=== PATIENT | female | born 1995 | race Caucasian/White ===

== ENCOUNTER → 2018-03-26 09:10 | Outpatient (REF) | payer SELFPAY ==
--- NOTE | 2018-03-26 08:30 | PAPFT_PTH ---
PATIENT: Amna Squires LOC: [facility] U#:[id number] AGE/SX: 29/F ROOM: RE03/26/[address]: Ramona Valentine NP : 1995 BED: DIS: SPEC #: [id number] RECD: 03/26/18 12:44 STATUS: MANI NICHOLS #: [id number] AN: 03/26/18 08:[address]: Ramona Valentine NP DEPT: [facility] Cytology RECD BY: Chante Solano ENTERED: 03/26/18 12:45 SP TYPE: PAPFT OTHR DR: Malika Dominguez, IT CONSULTING MANAGER Tissues: 1 - CX/ENDOCX FOR PAP SMEARS Procedures: PAP THIN PREP/UVM Screening Comments: [id number] (CHLAMYDIA GC)
[2018-03-27 14:07] LABS: Chlamydia Result Negative; GC Result Negative; Specimen Description SEE COMMENTS
== END ==
LOC: LBN 09:10
PROVIDERS: PCP Nurse Practitioner Family; Visit Provider Nurse Practitioner Women's Health
DX: Z11.3 Encounter for screening for infections with a predominantly sexual mode of transmission (principal); Z12.4 Encounter for screening for malignant neoplasm of cervix
CPT/HCPCS: 87491; 87591; 88142

== ENCOUNTER 2018-05-12 08:56 | Outpatient (CLI) | payer SELFPAY ==
--- NOTE | 2018-05-12 09:05 | DI.US_ITS ---
SYMPTOMS/DIAGNOSIS: LEFT LOWER QUADRANT ABDOMINAL PAIN AND EPIGASTRIC PAIN ABDOMINAL AND PELVIC ULTRASOUND: Routine examination. ABDOMINAL ULTRASOUND: The visualized liver parenchyma is normal in appearance. There is no evidence of cholelithiasis. The common bile duct is of normal diameter. The pancreas and spleen appear intact. No renal abnormality is seen. The abdominal aorta is of normal diameter. Normal appearance of IVC. IMPRESSION: Normal abdominal ultrasound. PELVIC ULTRASOUND: Transabdominal and transvaginal examination. The uterus measures 7.6 cm long x 3.5 cm AP x 5.0 cm transverse. The endometrial stripe is within normal limits at 0.5 cm. There is an intrauterine device seen within the endometrial canal. The ovaries are normal in size and appearance with normal blood flow. No evidence of a suspicious ovarian mass or torsion is seen. No free pelvic fluid is seen in the pelvis. IMPRESSION: Intrauterine device seen within the endometrial canal. Otherwise negative examination.
[2018-05-14 13:11] LABS: IgA 154 mg/dL (85-499); Interpretation SEE COMMENTS; Tissue Transglutaminase IgA <1.2 U/mL (<4.0)
== END 2018-05-12 09:16 ==
PROVIDERS: PCP Nurse Practitioner Family; Visit Provider Nurse Practitioner Family
DX: R10.31 Right lower quadrant pain (principal); R10.32 Left lower quadrant pain; Z97.5 Presence of (intrauterine) contraceptive device
CPT/HCPCS: 36415; 82784; 83516; 76700; 76830; 76856

== ENCOUNTER 2021-06-15 12:24 | Outpatient (REF) | payer SELFPAY ==
--- NOTE | 2021-06-15 10:30 | PAPFT_PTH ---
PATIENT: Amna Squires LOC: [facility] U#:[id number] AGE/SX: 25/F ROOM: RE06/15/[address]: JEROME Helay : 1995 BED: DIS: 06/15/2021 SPEC #: [id number] RECD: 06/15/21 13:02 STATUS: MANI NICHOLS #: [id number] AN: 06/15/21 10:[address]: Carito Cueva DEPT: [facility] Cytology RECD BY: Chante Solano ENTERED: 06/15/21 13:02 SP TYPE: PAPFT MALAIKA DR: JEROME May Tissues: 1 - CX/ENDOCX FOR PAP SMEARS Procedures: PAP THIN PREP/UVM Screening Comments: [id number]
== END 2021-06-15 12:25 | disposition home or self-care (01) ==
LOC: LBN 12:24
PROVIDERS: PCP Nurse Practitioner Family; Visit Provider Nurse Practitioner Family
DX: Z12.4 Encounter for screening for malignant neoplasm of cervix (principal)
CPT/HCPCS: 88142

== ENCOUNTER 2022-06-15 10:40 | Emergency (ER) | payer SELFPAY ==
[2022-06-15 10:43] VITALS: BP 123/83; PULSE 80; RESP 20; TEMP 36.7; O2SAT 98
--- NOTE | 2022-06-15 12:07 | ED.GENADUL_ITS ---
Discharge Plan Disposition Patient Disposition: HOME Condition: Improving Discharge Details Clinical Impression: Anxiety Primary Care Provider: Malika Dominguez ED Provider: Jesica Morales Home Meds and New Rx's Prescriptions: Continued fexofenadine 60 mg tablet 60 mg PO BID buspirone 30 mg tablet 30 mg PO BID Qty: 180 4RF Rx Instructions: Take 1 tablet twice a day fluoxetine 10 mg capsule 10 mg PO DAILY Qty: 90 0RF Discharge Instructions Instructions: Anxiety (ED) Additional Instructions: Drink plenty of fluids and get plenty of rest. Continue your regular medications as directed. Follow-up with [facility] and your primary care doctor for reevaluation as directed. Return immediately to the emergency department if you develop any worsening or new concerning symptoms. Discharge Data Discharge Physician: Jesica Morales Medical Decision Making 26-year-old female with a history of anxiety and depression presents with feel ings of anxiety and hearing voices this morning. She currently denies any SI or HI. Vitals within normal limits. Patient appears mild to moderately anxious but nontoxic. PERRLA. Lungs clear bilaterally. No meningeal signs. As patient appears comfortable and nontoxic, do not see an indication for lab work or imaging. Discussed that as medications are adjusted, this can cause some increase in anxiety or depression symptoms. Discussed that we will consult mental health for evaluation and she is agreeable with this plan at this time. Patient evaluated by Kranthi with mental health and cleared for discharge to home. Safety plan contracted. She was given follow-up information. Usual and customary return precautions given prior to discharge. Medical Records Medical records reviewed: Yes I reviewed the patient's medical records. HPI General Mode of arrival: ambulatory . Date/Time Provider Initiated Documentation: 06/15/22 10:43 . Limitations to Documentation: no limitations . Information obtained by: patient . HPI Narrative: Patient is a 26-year-old female with a history of anxiety who presents to the ED with a complaint of feeling anxiety this morning. Patient states her primary care doctor is decreasing her buspirone and started fluoxetine 3 days ago. Patient states she is not sure if this is secondary to these medication changes. She states she is also seeing a counselor for her symptoms this week. She states she called her mom due to her feelings of anxiety and her mom was concerned stating that she told her she was hearing voices. Patient states she is hearing thoughts telling her she needs to clean the house or complete tasks but denies any voices other than her own or telling her to cause harm to herself or others. Mother states that patient asked her spouse to lock up the firearms at home and she became concerned about this. Patient states she did this preemptively as she was knowing she was starting a new antidepressant and wanted to make sure she was safe. She states she has a history of cutting as a child but denies any other self-harm or suicide attempt. Patient states she has been having difficulty sleeping but otherwise has been eating. She denies any fever, chest pain, difficulty breathing, vomiting or diarrhea. Patient states she overall feels much better at this time and denies any hallucinations, thoughts of self-harm or feelings of significant anxiety at this time. Related Data Home Medications Medication Instructions Recorded Confirmed fexofenadine 60 mg tablet 60 mg PO BID 05/12/21 06/15/22 buspirone 30 mg tablet 30 mg PO BID #180 tabs 08/21/21 06/15/22 fluoxetine 10 mg capsule 10 mg PO DAILY #90 caps 06/13/22 06/15/22 Previous Rx's Medication Instructions Recorded buspirone 30 mg tablet 30 mg PO BID #180 tabs 08/21/21 fluoxetine 10 mg capsule 10 mg PO DAILY #90 caps 06/13/22 Allergies Allergy/AdvReac Type Severity Reaction Status Date / Time codeine Allergy Verified 06/13/22 08:01 Lactose Intolerance AdvReac Unknown GI Upset Uncoded 06/13/22 08:01 General Stated Complaint: GenMedical TERI: 4 Review of Systems All systems reviewed & are unremarkable except as noted in HPI and below Constitutional Constitutional: Reports as per HPI, Denies chills and Denies fever(s) Eyes Eyes: Denies blurry vision ENT Ears, Nose, Mouth, and Throat: Denies dizziness, Denies sore throat and Denies throat swelling Cardiovascular Cardiovascular: Denies chest pain and Denies dyspnea Respiratory Respiratory: Denies cough and Denies dyspnea Gastrointestinal Gastrointestinal: Denies abdominal pain, Denies diarrhea and Denies vomiting Genitourinary Genitourinary: Denies hematuria and Denies dysuria Musculoskeletal Musculoskeletal: Denies back pain and Denies numbness Integumentary/Breasts Skin/Breast: Denies lesions and Denies rash Neurologic Neurologic: Denies dizziness, Denies localized weakness and Denies numbness Psychiatric Psychiatric: Reports anxiety Allergic/Immunologic Allergic/Immunologic: Denies throat swelling PFSH All Active Problems (Updated 06/15/22 @ 14:21 by Jesica Morales DO) Anxiety (Chronic) Plantar wart, right foot (Chronic) ADHD (attention deficit hyperactivity disorder) (Chronic) Major depressive disorder (Chronic) Generalized anxiety disorder (Chronic) Fibromyalgia (Chronic) Mild intermittent asthma (Chronic) Medical History (Updated 06/15/22 @ 14:21 by Jesica Morales DO) Anorexia IUD surveillance Surgical History S/P removal of ovarian cyst Right Family History Mother Depression Asthma Father Substance abuse Alcohol abuse Depression Mental disorder Brother No problems noted. Brother ADHD Depression Maternal Grandfather Asthma Heart disease Maternal Grandmother Crohn's disease Paternal Grandfather No problems noted. Paternal Grandmother No problems noted. Social History Smoking/Tobacco Use Status: Current every day Tobacco Type: e-cigarettes Tobacco: How many years used: 10 Smokeless tobacco user: dissolvable tobacco Quit status: considering quitting Second Hand Exposure: Yes Smoking risk assessment performed?: Yes Alcohol Intake: current Alcohol Intake frequency: holidays/special occasions only Alcohol type: wine Drug use: Daily Substance use type: marijuana Details: Pt state she was previously misusing adderall but no longer. 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 Pets and animals: No Sexually active: Yes Do you think of yourself as: straight/heterosexual Current gender identity: female What is your relationship status?: How often do you talk on the phone with friends or family?: never How often do you get together with friends or relatives?: twice per week Do you belong to any clubs or organized social groups?: no Panel score (0-1 are the most socially isolated patients): 1 What type of physical activity do you participate in: walking and weight lifting Duration: < 15 minutes/day Frequency: daily Gwen/Hindu: None Special gwen needs: No Seatbelt use: always Helmet use: Yes Helmet use: always Drive intox or ride w/intox 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 Do you feel safe at home: No Do you feel safe in your relationship?: No Female Reproductive History Menstrual control method: copper IUCD History History 0 Para Hx # Term Pregnancies Multiple births Hx # Pregnancies Ectopic pregnancies AB induced Hx Number of Living Children AB spontaneous Exam Const General: cooperative, no acute distress and anxious Orientation: alert, awake and oriented x3 HENMT Head: normal to inspection Face and sinus: normal facial exam Eyes General: appearance normal, both eyes and all related structures Pupils: PERRL EOM: EOM intact bilaterally Neck Neck: normal visual inspection and No submandibular swelling Lymphatic: no lymphadenopathy noted Chest Chest: normal inspection of the chest and no tenderness Resp Effort & Inspection: normal respiratory effort and able to speak in complete sentences Auscultation: clear to auscultation bilaterally Cardio Rate: regular rate Rhythm: regular rhythm GI Inspection: normal to inspection Palpation: soft, not firm, not rigid and nontender Auscultation: hypoactive bowel sounds Back/Spine/Pelvis Thoracic/Lumbar Spine: thoracic and lumbar spine normal to inspection Pelvis: no pain with anterior-posterior compression Skin General skin exam: no rashes or lesions noted Neuro General: patient alert, patient awake and patient oriented x3 Cognition: normal cognition Speech: speech normal Motor: muscle tone normal throughout Sensory Exam: no sensory deficits noted Extrem General: normal to inspection, full ROM, capillary refill normal, no calf tenderness bilaterally and no edema Psych Appearance: grossly normal Mental Status: mental status grossly normal Speech and Movement: speech and movement normal Affect: normal affect Course Vital Signs Vital signs: Vital Signs Temperature 98.1 F 06/15/22 10:43 Pulse 80 06/15/22 10:43 Respiratory Rate 20 06/15/22 10:43 Blood Pressure 123/83 06/15/22 10:43 Pulse Oximetry 98 06/15/22 10:43 Temperature 98.1 F 06/15/22 10:43 Temperature Source Temporal Artery Scan 06/15/22 10:43 Pulse 80 06/15/22 10:43 Respiratory Rate 20 06/15/22 10:43 Respiratory Effort Non-Labored 06/15/22 10:47 Blood Pressure 123/83 06/15/22 10:43 Blood Pressure Position Sitting 06/15/22 10:43 Pulse Oximetry 98 06/15/22 10:43 Oxygen Delivery Method Room Air 06/15/22 10:43 Oxygen Flow Rate 0 06/15/22 10:43 Lab/Test Results Lab/Test Results: POC- Test(urine) Negative
[2022-06-15 14:37] VITALS: BP 130/87; PULSE 90; RESP 18; O2SAT 92
== END 2022-06-15 14:41 | disposition home or self-care (01) ==
PROVIDERS: Emergency Provider Physician Assistant; PCP Nurse Practitioner Family
DX: F41.9 Anxiety disorder, unspecified (principal); Z32.02 Encounter for pregnancy test, result negative
CPT/HCPCS: 81025; 99283; 99284

== ENCOUNTER 2022-06-16 07:34 | Emergency (ER) | payer SELFPAY ==
[2022-06-16 07:38] VITALS: BP 120/87; PULSE 72; RESP 17; TEMP 36.9; O2SAT 100
[2022-06-16 07:44] VITALS: RESP 18
--- NOTE | 2022-06-16 08:31 | W.ED.GENAD ---
Discharge Plan Disposition Patient Disposition: HOME Condition: Improving Discharge Details Clinical Impression: Vaginal odor, Anxiety Primary Care Provider: Malika Dominguez ED Provider: Jesica Morales Home Meds and New Rx's Prescriptions: Continued fexofenadine 60 mg tablet 60 mg PO BID buspirone 30 mg tablet 30 mg PO BID Qty: 180 4RF Rx Instructions: Take 1 tablet twice a day fluoxetine 10 mg capsule 10 mg PO DAILY Qty: 90 0RF Discharge Instructions Instructions: Bacterial Vaginosis (ED), Anxiety (ED) Additional Instructions: Your urine sample shows no evidence of infection. Your urine test today is negative. Your vaginal pathogen screen is pending. You will be notified of the results today. Your chlamydia and gonorrhea tests are pending and you will be notified if you are positive for infection. Drink plenty of fluids and get plenty of rest. Take the oral Ativan as needed and directed for feelings of anxiety. Call your primary care doctor and [facility] for follow-up this week. Follow[facility] with [facility] for your anxiety as scheduled. Return immediately to the emergency department if you develop any worsening or new concerning symptoms. Referrals: [facility] [place] [place] [Provider Group] Discharge Data Discharge Physician: Jesica Morales Medical Decision Making 26-year-old female with a history of anxiety, depression, ADHD, asthma, fibromyalgia presents for multiple complaints today. She was seen here yesterday for anxiety and given referral information for mental health. She states her main complaint for decided to come to the emergency department is vaginal odor. She states she tasted blood in her mouth on the way to the emergency department. Patient is profoundly anxious. Her vitals are within normal limits. She is tearful throughout evaluation. Normal ENT exam. Lungs clear. Abdomen soft and nontender. Urine test negative. Discussed with patient that her history and presentation does not appear consistent with meningitis, CVA, PE. Will obtain urinalysis and speculum exam with vaginal swabs and give a dose of ativan PO. Urinalysis negative for infection. Speculum exam no obvious odor or vaginal discharge. There was a small ulcer noted on the vaginal mucosa but there are no signs of cellulitis or drainage. No cervical motion tenderness or adnexal mass or tenderness. Patient would like to go home. Will call with vaginal Pap screen results. Advised to follow-up with [facility] and her primary care doctor for reevaluation. Given a couple tabs of Ativan p.o. to go. Usual and customary return precautions given prior to discharge. Medical Records Medical records reviewed: Yes I reviewed the patient's medical records. HPI General Mode of arrival: ambulatory. Date/Time Provider Initiated Documentation: 06/16/22 07:35. Limitations to Documentation: no limitations. Information obtained by: patient and family. HPI Narrative: Pt is a 26yo F w/ a h/o anxiety who presents to the ED w/ multiple complaints including headache, abdominal bloating, occasional vomiting, alternating constipation and diarrhea, taste of blood in mouth, vaginal odor, urinary frequency and vaginal spotting of blood. She states she had her IUD removed 1 year ago and normally does not have regular periods. She thinks her last period was 4-6 weeks ago. She is sexually active with her and does not always use protection. She states the odor is foul but she denies any vaginal lesions or green frothy or cheesy discharge. Triage note stated that pt had runny nose but pt denies this. Pt states she decided to come to the emergency department today due to vaginal odor and then noted that she tasted blood in her mouth on the way here. She states she often has headaches and hasn't been sleeping and eating well due to her anxiety and recently decreasing her bupropion a couple weeks ago and started fluoxetine a few days ago per her pcp for her anxiety. Pt was seen here yesterday for anxiety and seen by mental health and given referral information for follow up. She has denied SI/HI. Pt feels she has good support with her and family at home. She denies fever, neck pain, chest pain, difficulty breathing. Related Data Home Medications Medication Instructions Recorded Confirmed fexofenadine 60 mg tablet 60 mg PO BID 05/12/21 06/16/22 buspirone 30 mg tablet 30 mg PO BID #180 tabs 08/21/21 06/16/22 fluoxetine 10 mg capsule 10 mg PO DAILY #90 caps 06/13/22 06/16/22 Previous Rx's Medication Instructions Recorded buspirone 30 mg tablet 30 mg PO BID #180 tabs 08/21/21 fluoxetine 10 mg capsule 10 mg PO DAILY #90 caps 06/13/22 Allergies Allergy/AdvReac Type Severity Reaction Status Date / Time codeine Allergy Verified 06/16/22 07:44 Lactose Intolerance AdvReac Unknown GI Upset Uncoded 06/16/22 07:44 General Stated Complaint: GenMedical TERI: 3 Review of Systems All systems reviewed & are unremarkable except as noted in HPI and below Constitutional Constitutional: Reports as per HPI, Denies chills, Denies fever(s) and Reports headache(s) Eyes Eyes: Denies blurry vision ENT Ears, Nose, Mouth, and Throat: Denies dizziness, Reports headache(s), Denies sore throat and Denies throat swelling Cardiovascular Cardiovascular: Denies chest pain and Denies dyspnea Respiratory Respiratory: Denies cough and Denies dyspnea Gastrointestinal Gastrointestinal: Denies abdominal pain, Reports bloating, Reports constipation, Reports diarrhea and Denies vomiting Genitourinary Genitourinary: Denies hematuria, Denies dysuria, Reports vaginal odor and Reports other (urinary frequency) Musculoskeletal Musculoskeletal: Denies back pain and Denies numbness Integumentary/Breasts Skin/Breast: Denies lesions and Denies rash Neurologic Neurologic: Denies dizziness, Reports headache(s), Denies localized weakness and Denies numbness Allergic/Immunologic Allergic/Immunologic: Denies throat swelling PFSH All Active Problems (Updated 06/16/22 @ 09:20 by Jesica Morales DO) Vaginal odor (Acute) Anxiety (Chronic) Anxiety (Chronic) Plantar wart, right foot (Chronic) Medical History (Updated 06/16/22 @ 09:20 by Jesica Morales DO) ADHD (attention deficit hyperactivity disorder) Anorexia Fibromyalgia Generalized anxiety disorder Major depressive disorder Mild intermittent asthma Surgical History S/P removal of ovarian cyst Right Family History Mother Depression Asthma Father Substance abuse Alcohol abuse Depression Mental disorder Brother No problems noted. Brother ADHD Depression Maternal Grandfather Asthma Heart disease Maternal Grandmother Crohn's disease Paternal Grandfather No problems noted. Paternal Grandmother No problems noted. Social History Smoking/Tobacco Use Status: Current every day Tobacco Type: e-cigarettes Tobacco: How many years used: 10 Smokeless tobacco user: dissolvable tobacco Quit status: considering quitting Second Hand Exposure: Yes Smoking risk assessment performed?: Yes Alcohol Intake: current Alcohol Intake frequency: holidays/special occasions only Alcohol type: wine Drug use: Daily Substance use type: marijuana Details: Pt state she was previously misusing adderall but no longer. 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[employer] Pets and animals: No Sexually active: Yes Do you think of yourself as: straight/heterosexual Current gender identity: female What is your relationship status?: How often do you talk on the phone with friends or family?: never How often do you get together with friends or relatives?: twice per week Do you belong to any clubs or organized social groups?: no Panel score (0-1 are the most socially isolated patients): 1 What type of physical activity do you participate in: walking and weight lifting Duration: < 15 minutes/day Frequency: daily Gwen/Voodoo: None Special gwen needs: No Seatbelt use: always Helmet use: Yes Helmet use: always Drive intox 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 Do you feel safe at home: No Do you feel safe in your relationship?: No Female Reproductive History Menstrual control method: copper IUCD History History 0 Para Hx # Term Pregnancies Multiple births Hx # Pregnancies Ectopic pregnancies AB induced Hx Number of Living Children AB spontaneous Exam Const General: cooperative, healthy appearing and anxious (significantly anxious) Orientation: alert, awake and oriented x3 HENMT Head: normal to inspection Face and sinus: normal facial exam Eyes General: appearance normal, both eyes and all related structures Pupils: PERRL EOM: EOM intact bilaterally Neck Neck: normal visual inspection and No submandibular swelling Lymphatic: no lymphadenopathy noted Chest Chest: normal inspection of the chest and no tenderness Resp Effort & Inspection: normal respiratory effort and able to speak in complete sentences Auscultation: clear to auscultation bilaterally Cardio Rate: regular rate Rhythm: regular rhythm GI Inspection: normal to inspection Palpation: soft, not firm, not rigid and nontender Auscultation: hypoactive bowel sounds Skin General skin exam: no rashes or lesions noted Neuro General: patient alert, patient awake and patient oriented x3 Cognition: normal cognition Speech: speech normal Motor: muscle tone normal throughout Sensory Exam: no sensory deficits noted Extrem General: normal to inspection, full ROM, capillary refill normal, no calf tenderness bilaterally and no edema Psych Appearance: grossly normal Mental Status: mental status grossly normal Speech and Movement: speech and movement normal Affect: normal affect Course Vital Signs Vital signs: Vital Signs Temperature 98.4 F 06/16/22 07:38 Pulse 72 06/16/22 07:38 Respiratory Rate 17 06/16/22 07:38 Blood Pressure 120/87 06/16/22 07:38 Pulse Oximetry 100 06/16/22 07:38 Temperature 98.4 F 06/16/22 07:38 Temperature Source Tympanic 06/16/22 07:38 Pulse 72 06/16/22 07:38 Respiratory Rate 18 06/16/22 07:44 Respiratory Effort Non-Labored 06/16/22 07:44 Respiratory Depth Normal 06/16/22 07:44 Respiratory Pattern Normal 06/16/22 07:44 Blood Pressure 120/87 06/16/22 07:38 Blood Pressure Position Sitting 06/16/22 07:38 Pulse Oximetry 100 06/16/22 07:38 Oxygen Delivery Method Room Air 06/16/22 07:38 Oxygen Flow Rate 0 06/16/22 07:38 Pain Level 0 06/16/22 07:38
[2022-06-16] MEDS: LORazepam 1 MG TAB PO (08:34)
[2022-06-16 09:02] LABS: Bilirubin Negative (Negative); Blood Negative (Negative); Clarity Sl Cloudy (Clear); Glucose Negative (Negative); Ketones 40 mg/dL (Negative); Leukocyte Esterase Negative (Negative); Nitrite Negative (Negative); Specific Gravity 1.025 (1.005-1.025)
[2022-06-18 15:43] LABS: Chlamydia Result Negative (Negative); GC Result Negative (Negative)
== END 2022-06-16 09:35 | disposition home or self-care (01) ==
PROVIDERS: Emergency Provider Physician Assistant; PCP Nurse Practitioner Family
DX: F41.9 Anxiety disorder, unspecified (principal); N76.5 Ulceration of vagina; J45.20 Mild intermittent asthma, uncomplicated; F90.9 Attention-deficit hyperactivity disorder, unspecified type; J45.909 Unspecified asthma, uncomplicated; F17.290 Nicotine dependence, other tobacco product, uncomplicated; Z79.52 Long term (current) use of systemic steroids
CPT/HCPCS: 81025; 87491; 87591; 99283; 81003; 87480; 87510; 87660; 99284

== ENCOUNTER 2022-06-16 18:00 | Emergency (ER) | payer SELFPAY ==
[2022-06-16 18:11] VITALS: BP 113/87; PULSE 113; RESP 20; TEMP 36.7; O2SAT 99
--- NOTE | 2022-06-16 18:51 | W.ED.GENAD ---
Discharge Plan Disposition Patient Disposition: HOME Condition: Stable Discharge Details Clinical Impression: Headache, Dehydration Primary Care Provider: Malika Dominguez ED Provider: Lilliam Cleaning Home Meds and New Rx's Prescriptions: No Action fexofenadine 60 mg tablet 60 mg PO BID buspirone 30 mg tablet 30 mg PO BID Qty: 180 4RF Rx Instructions: Take 1 tablet twice a day fluoxetine 10 mg capsule 10 mg PO DAILY Qty: 90 0RF Discharge Instructions Instructions: Dehydration (ED), General Headache (ED) Additional Instructions: At this time labs are largely unremarkable and head CT is within normal limits. Please discuss your symptoms with your primary care provider regarding your medication changes. Follow up with primary care provider in 3-5 days. Return to ED sooner if any worsening or concerns. Increase oral fluids. Please take Tylenol or Ibuprofen with food every 4-6 hours as needed for pain and swelling. Please call the [facility] crisis hotline for any thoughts of harming yourself or others. Referrals: Malika Dominguez, MANAGER SCIENCE [Primary Care Provider] - 3 days Medical Decision Making 26-year-old female presents to the ER for the third time in the last 48 hours with chief complaint of head pressure, inability to focus, and off balance. Patient was seen here earlier today and was given lorazepam reports she went home took a nap and woke up feeling off. Per staff report patients ride is stating that patient is making suicidal comments. She did have a mental health evaluation on the and was cleared for discharge. I specifically asked patient once again if she is having any suicidal ideations and she reports that she is not currently however she states that she was earlier due to some problems with her . She states that she feels suicidal when she thinks of being without her . She has no plan. She is willing to talk with mental health. At this time we are awaiting a urine and a head CT for medical clearance. CBC shows mild leukocytosis with a white blood cell count of 13.10, absolute neutrophils 9.04, anion gap 12.6, bilirubin 1.2 urinalysis and urine drug screen is pending, ethyl alcohol less than 3.0 COVID is negative. 2132: Spoke with Mental health liason for MH consult. Patient is medically cleared for eval. Patient discharged to home discussed lab results and CT results and follow-up care he verbalized understanding. I do believe this is a combination of recent medication changes and stress. Patient discharged in stable condition. This text was generated using [employer] dictation system, please disregard any oddities of phrase or misspellings. Medical Records Medical records reviewed: Yes I reviewed the patient's medical records. Medical records narrative: Patient was seen here early this morning and yesterday. Imaging Data Radiologic Study: Imaging: CT Scan Radiologist's impression: COMPARISON: No relevant prior studies available. FINDINGS: Brain: Normal. No hemorrhage. Unremarkable white matter. No mass effect. Cerebral ventricles: No ventriculomegaly. Paranasal sinuses: Visualized sinuses are unremarkable. No fluid levels. Mastoid air cells: Visualized mastoid air cells are well aerated. Bones/joints: Unremarkable. No acute fracture. Soft tissues: Unremarkable. IMPRESSION: No acute intracranial abnormality. Thank you for allowing us to participate in the care of your patient. Dictated and Authenticated by: Shane Garcia DO Lab Data Lab results reviewed: Yes I reviewed the patient's lab results. Labs: Laboratory Tests Range/Units 06/16/22 06/16/22 06/16/22 19:08 19:08 19:12 WBC (4.4-10.8) 10^3/uL 13.10 H RBC (3.93-5.22) 10^6/uL 4.69 Hgb (11.2-15.7) g/dL 15.0 Hct (36.0-46.0) % 43.1 MCV (80-95) fL 92 MCH (27.0-33.0) pg 32.0 MCHC (32.0-36.0) % 34.8 RDW (11.7-14.6) % 12.0 Plt Count (130-400) 10^3/uL 287 MPV (8.0-11.0) fL 9.8 Immature Gran % 0.4 Neutrophils % 69.0 Lymphocytes % 21.4 Monocytes % 7.8 Eosinophils % 0.7 Basophils % 0.7 Nucleated RBC % (0.0-0.3) % 0.0 Absolute Neutrophils (1.2-6.7) 10^3/uL 9.04 H Absolute Lymphocytes (1.2-3.4) 10^3/uL 2.80 Absolute Monocytes (0.1-0.8) 10^3/uL 1.02 H Absolute Eosinophils (0.0-0.7) 10^3/uL 0.09 Absolute Basophils (0.0-0.2) 10^3/uL 0.09 Sodium (136-145) mmol/L 138 Potassium (3.5-5.1) mmol/L 3.8 Chloride (98-107) mmol/L 103 Carbon Dioxide (21.0-32.0) mmol/L 22.4 Anion Gap (3-11) mmol/L 12.6 H BUN (7-18) mg/dL 12 Creatinine (0.55-1.02) mg/dL 0.7 Est GFR (CKD-EPI 2020) (mL/min/1.73m2) 120.74 Glucose (74-106) mg/dL 96 Calcium (8.5-10.1) mg/dL 9.6 Magnesium (1.8-2.4) mg/dL 2.0 Total Bilirubin (0.2-1.0) mg/dL 1.2 H AST (15-37) U/L 14 L ALT (14-59) U/L 17 Alkaline Phosphatase (46-116) U/L 61 Total Protein (6.4-8.2) g/dL 7.4 Albumin (3.4-5.0) g/dL 4.5 TSH (0.36-3.74) uIU/mL 2.11 Urine Color (Yellow) Urine Clarity (Clear) Urine pH (5-8) Ur Specific [place] (1.005-1.025) Urine Protein (Negative) mg/dL Urine Ketones (Negative) mg/dL Urine Blood (Negative) Urine Nitrite (Negative) Urine Bilirubin (Negative) Urine Urobilinogen (Up TO 0.2) EU/dL Ur Leukocyte Esterase (Negative) Urine Glucose (Negative) mg/dL Urine Opiates Screen (Negative) Urine Methadone Screen (Negative) Ur Barbiturates Screen (Negative) Ur Tricyclics Screen (Negative) Ur Amphetamines Screen (Negative) U Benzodiazepines Scrn (Negative) Urine Cocaine Screen (Negative) Ur THC Screen (Negative) Ethyl Alcohol (<10) mg/dL < 3.0 COVID-19 Source Nasal/Nares SARS-CoV-2 (PCR) (Negative) Negative Range/Units 06/16/22 06/16/22 19:59 19:59 WBC (4.4-10.8) 10^3/uL RBC (3.93-5.22) 10^6/uL Hgb (11.2-15.7) g/dL Hct (36.0-46.0) % MCV (80-95) fL MCH (27.0-33.0) pg MCHC (32.0-36.0) % RDW (11.7-14.6) % Plt Count (130-400) 10^3/uL MPV (8.0-11.0) fL Immature Gran % Neutrophils % Lymphocytes % Monocytes % Eosinophils % Basophils % Nucleated RBC % (0.0-0.3) % Absolute Neutrophils (1.2-6.7) 10^3/uL Absolute Lymphocytes (1.2-3.4) 10^3/uL Absolute Monocytes (0.1-0.8) 10^3/uL Absolute Eosinophils (0.0-0.7) 10^3/uL Absolute Basophils (0.0-0.2) 10^3/uL Sodium (136-145) mmol/L Potassium (3.5-5.1) mmol/L Chloride (98-107) mmol/L Carbon Dioxide (21.0-32.0) mmol/L Anion Gap (3-11) mmol/L BUN (7-18) mg/dL Creatinine (0.55-1.02) mg/dL Est GFR (CKD-EPI 2020) (mL/min/1.73m2) Glucose (74-106) mg/dL Calcium (8.5-10.1) mg/dL Magnesium (1.8-2.4) mg/dL Total Bilirubin (0.2-1.0) mg/dL AST (15-37) U/L ALT (14-59) U/L Alkaline Phosphatase (46-116) U/L Total Protein (6.4-8.2) g/dL Albumin (3.4-5.0) g/dL TSH (0.36-3.74) uIU/mL Urine Color (Yellow) Yellow Urine Clarity (Clear) Clear Urine pH (5-8) 6.5 Ur Specific [place] (1.005-1.025) 1.010 Urine Protein (Negative) mg/dL Negative Urine Ketones (Negative) mg/dL Trace H Urine Blood (Negative) Negative Urine Nitrite (Negative) Negative Urine Bilirubin (Negative) Negative Urine Urobilinogen (Up TO 0.2) EU/dL 0.2 Ur Leukocyte Esterase (Negative) Negative Urine Glucose (Negative) mg/dL Negative Urine Opiates Screen (Negative) Negative Urine Methadone Screen (Negative) Negative Ur Barbiturates Screen (Negative) Negative Ur Tricyclics Screen (Negative) Negative Ur Amphetamines Screen (Negative) Negative U Benzodiazepines Scrn (Negative) Negative Urine Cocaine Screen (Negative) Negative Ur THC Screen (Negative) Positive A Ethyl Alcohol (<10) mg/dL COVID-19 Source SARS-CoV-2 (PCR) (Negative) HPI General Mode of arrival: ambulatory. Date/Time Provider Initiated Documentation: 06/16/22 18:00. Limitations to Documentation: no limitations. Information obtained by: RN notes reviewed and old records reviewed. HPI Narrative: 26-year-old female presents to the ER for the third time in the last 48 hours with chief complaint of head pressure, inability to focus, and off balance. Patient was seen here earlier today and was given lorazepam reports she went home took a nap and woke up feeling off. Yesterday there is record of her hearing voices which patient denies at this time. She does vape. She denies any alcohol or drugs. She denies any chest pain or shortness of breath. She is slightly tachycardic upon arrival with a heart rate of 113. She denies any diarrhea or vomiting. She denies any problems urinating. Denies any suicidal or homicidal thoughts at this time. She is also having a change from her buspirone to fluoxetine and changes of dosages in her normal medications. Related Data Home Medications Medication Instructions Recorded Confirmed fexofenadine 60 mg tablet 60 mg PO BID 05/12/21 06/16/22 buspirone 30 mg tablet 30 mg PO BID #180 tabs 08/21/21 06/16/22 fluoxetine 10 mg capsule 10 mg PO DAILY #90 caps 06/13/22 06/16/22 Previous Rx's Medication Instructions Recorded buspirone 30 mg tablet 30 mg PO BID #180 tabs 08/21/21 fluoxetine 10 mg capsule 10 mg PO DAILY #90 caps 06/13/22 Allergies Allergy/AdvReac Type Severity Reaction Status Date / Time codeine Allergy Verified 06/16/22 07:44 Lactose Intolerance AdvReac Unknown GI Upset Uncoded 06/16/22 07:44 General Stated Complaint: GenMedical TERI: 3 Review of Systems All systems reviewed & are unremarkable except as noted in HPI and below Constitutional Constitutional: Reports as per HPI, Denies fever(s) and Reports headache(s) (Pressure) ENT Ears, Nose, Mouth, and Throat: Reports headache(s) (Pressure) Neurologic Neurologic: Reports headache(s) (Pressure) Psychiatric Psychiatric: Reports anxiety PFSH All Active Problems (Updated 06/16/22 @ 22:29 by Lilliam Cleaning NP) Vaginal odor (Acute) Anxiety (Chronic) Headache (Acute) Dehydration (Acute) Anxiety (Chronic) Plantar wart, right foot (Chronic) Medical History ADHD (attention deficit hyperactivity disorder) Anorexia Fibromyalgia Generalized anxiety disorder Major depressive disorder Mild intermittent asthma Surgical History S/P removal of ovarian cyst Right Family History Mother Depression Asthma Father Substance abuse Alcohol abuse Depression Mental disorder Brother No problems noted. Brother ADHD Depression Maternal Grandfather Asthma Heart disease Maternal Grandmother Crohn's disease Paternal Grandfather No problems noted. Paternal Grandmother No problems noted. Social History Smoking/Tobacco Use Status: Current every day Tobacco Type: e-cigarettes Tobacco: How many years used: 10 Smokeless tobacco user: dissolvable tobacco Quit status: considering quitting Second Hand Exposure: Yes Smoking risk assessment performed?: Yes Alcohol Intake: current Alcohol Intake frequency: holidays/special occasions only Alcohol type: wine Drug use: Daily Substance use type: marijuana Details: Pt state she was previously misusing adderall but no longer. Caregiver/Support person: No Household members: spouse Housing: house Communication Needs: None Do you need help understanding health information?: Often current occupation: [employer] Pets and animals: No Sexually active: Yes Do you think of yourself as: straight/heterosexual Current gender identity: female What is your relationship status?: How often do you talk on the phone with friends or family?: never How often do you get together with friends or relatives?: twice per week Do you belong to any clubs or organized social groups?: no Panel score (0-1 are the most socially isolated patients): 1 What type of physical activity do you participate in: walking and weight lifting Duration: < 15 minutes/day Frequency: daily Gwen/Congregation: None Special gwen needs: No Seatbelt use: always Helmet use: Yes Helmet use: always Drive intox or ride w/intox mobile lounge driver or operator: No Do you feel safe at home: No Do you feel safe in your relationship?: No Female Reproductive History Menstrual control method: copper IUCD History History 0 Para Hx # Term Pregnancies Multiple births Hx # Pregnancies Ectopic pregnancies AB induced Hx Number of Living Children AB spontaneous Exam Narrative Exam Narrative: Constitutional: Alert and oriented x3. Appears stated age. Thin body habitus. Head: Normocephalic, no trauma. Eyes: Pupils PERRL, Red reflex noted, EOM's intact. Eyelids symmetrical without lesions, discharge, or swelling. ENT: Bilateral TM's WNL, External ear normal to inspection, no mastoid TTP, swelling, or erythema, Nasal turbinates WNL, no nasal discharge. Normal dentition, Posterior pharynx WNL, no exudate. Chest: Tachycardia, Normal S1, S2, distal pulses intact. Resp: Lungs clear to auscultation bilaterally, no wheezes, rales, or rhonchi. Abdomen: Soft, non-distended, Normoactive bowel sounds all 4 quads. Musculoskeletal: Normal gait, 5/5 strength to all four extremities. Skin: No suspicious rashes or lesions. Capillary refill less than 2 sec. Neurologic: Cranial nerves II-XII intact. Alert and oriented x 3. Motor: No deficits noted. Sensory: Intact bilaterally all 4 extremities. Reflexes: DTR's intact bilaterally.. Hematologic/Lymphatic: No ecchymosis, no lymphadenopathy. Course Vital Signs Vital signs: Vital Signs Temperature 36.7 C 06/16/22 18:11 Pulse 113 H 06/16/22 18:11 Respiratory Rate 20 06/16/22 18:11 Blood Pressure 113/87 06/16/22 18:11 Pulse Oximetry 99 06/16/22 18:11 Temperature 36.7 C 06/16/22 18:11 Temperature Source Temporal Artery Scan 06/16/22 18:11 Pulse 113 H 06/16/22 18:11 Respiratory Rate 20 06/16/22 18:11 Blood Pressure 113/87 06/16/22 18:11 Blood Pressure Position Sitting 06/16/22 18:11 Pulse Oximetry 99 06/16/22 18:11 Oxygen Delivery Method Room Air 06/16/22 18:11 Oxygen Flow Rate 0 06/16/22 18:11 Pain Level 0 06/16/22 18:11
[2022-06-16 19:00] VITALS: RESP 18
[2022-06-16 19:18] LABS: Source Nasal/Nares
[2022-06-16 19:18] LABS: Abs Immature Grans 0.05 10^3/uL (0.0-0.06); Absolute Basophil Count 0.09 10^3/uL (0.0-0.2); Absolute Eosinophil Count 0.09 10^3/uL (0.0-0.7); Absolute Monocyte Count 1.02 10^3/uL (0.1-0.8); Basophils % 0.7; Eosinophils % 0.7; HCT 43.1 % (36.0-46.0); Immature Grans % 0.4; Lymphocytes % 21.4; MCHC 34.8 % (32.0-36.0); MCV 92 fL (80-95); MPV 9.8 fL (8.0-11.0); Monocytes % 7.8; Platelet Count 287 10^3/uL (130-400); RBC 4.69 10^6/uL (3.93-5.22); RDW-SD 40.3 fL
[2022-06-16 19:22] LABS: Absolute Neutrophil Count 9.04 10^3/uL (1.2-6.7)
[2022-06-16 19:50] LABS: COVID-19 PCR Negative (Negative)
[2022-06-16 20:02] LABS: ALT 17 U/L (14-59); AST 14 U/L (15-37); Albumin 4.5 g/dL (3.4-5.0); Alkaline Phosphatase 61 U/L (46-116); Anion Gap 12.6 mmol/L (3-11); BUN 12 mg/dL (7-18); Bilirubin, Total 1.2 mg/dL (0.2-1.0); CO2 22.4 mmol/L (21.0-32.0); CREATININE 0.7 mg/dL (0.55-1.02); Calcium 9.6 mg/dL (8.5-10.1); Chloride 103 mmol/L (98-107); Estimated GFR 120.74 (mL/min/1.73m2); Glucose 96 mg/dL (74-106); Potassium 3.8 mmol/L (3.5-5.1); Sodium 138 mmol/L (136-145); TSH (W/Ref FT4) 2.11 uIU/mL (0.36-3.74); Total Protein 7.4 g/dL (6.4-8.2)
[2022-06-16 20:04] LABS: ETHANOL BLOOD < 3.0 mg/dL (<10)
[2022-06-16 20:13] LABS: Bilirubin Negative (Negative); Blood Negative (Negative); Clarity Clear (Clear); Glucose Negative (Negative); Ketones Trace mg/dL (Negative); Leukocyte Esterase Negative (Negative); Nitrite Negative (Negative); Urobilinogen 0.2 EU/dL (Up TO 0.2); pH 6.5 (5-8)
--- NOTE | 2022-06-16 20:15 | DI.CT_ITS ---
Exam(s) CT HEAD WO EXAM: CT HEAD WO CLINICAL HISTORY: Headache, Confusion. TECHNIQUE: Imaging Protocol: Axial computed tomography images with coronal and sagittal reformatted images were created and reviewed COMPARISON: No exams were available for comparison FINDINGS: There are no skull fractures. There is no fluid in the visualized paranasal sinuses. There is no evidence of intracranial hemorrhage, mass effect, or shift of midline structures. There are no extra-axial fluid collections. The ventricles are not enlarged or shifted and there is no blo od within the ventricular system nor within the basal cisterns. IMPRESSION: No acute intracranial findings on this noninfused CT scan of the brain. RADIATION DOSE DELIVERED: 722.38mGy.cm Total DLP DATA REPOSITORY: All CT scans at this facility are submitted to the National Radiology Data Registry (NRDR) Dose Index Registry (DIR) with the [employer] (ACR). RADIATION OPTIMIZATION: All CT scans at this facility use at least one of these dose optimization te chniques: automated exposure control; mA and/or kV adjustment per patient size (includes targeted exa ms where dose is matched to clinical indication); or iterative reconstruction.
[2022-06-16] MEDS: Normal Saline 1,000 ML 1000 ML IV (20:31)
[2022-06-16 20:46] LABS: *AMPHETAMINES SCREEN URINE Negative (Negative); *BARBITURATES SCREEN URINE Negative (Negative); *BENZODIAZEPINES SCREEN URINE Negative (Negative); Cannabinoids THC Positive (Negative); Cocaine Screen,Urine Negative (Negative); METHADONE URINE SCREEN Negative (Negative); OPIATES URINE SCREEN Negative (Negative)
[2022-06-16 20:49] LABS: Tricyclic Antidepressants Negative (Negative)
--- NOTE | 2022-06-16 21:25 | DI.VRAD_ITS ---
PROCEDURE INFORMATION: Exam: CT Head Without Contrast Exam date and time: 06/16/2022 9:05 PM Age: 26 years old Clinical indication: Pain; Headache; Other: Confusion TECHNIQUE: Imaging protocol: Computed tomography of the head without contrast. COMPARISON: No relevant prior studies available. FINDINGS: Brain: Normal. No hemorrhage. Unremarkable white matter. No mass effect. Cerebral ventricles: No ventriculomegaly. Paranasal sinuses: Visualized sinuses are unremarkable. No fluid levels. Mastoid air cells: Visualized mastoid air cells are well aerated. Bones/joints: Unremarkable. No acute fracture. Soft tissues: Unremarkable. IMPRESSION: No acute intracranial abnormality. Dictated and Authenticated by: Shane Garcia MD. Ordering:MARICHUY Vyas MD
== END 2022-06-16 22:47 | disposition home or self-care (01) ==
PROVIDERS: Emergency Provider Registered Nurse Emergency; PCP Nurse Practitioner Family
DX: E86.0 Dehydration (principal); D72.829 Elevated white blood cell count, unspecified; R51.9 Headache, unspecified; F90.9 Attention-deficit hyperactivity disorder, unspecified type; F17.290 Nicotine dependence, other tobacco product, uncomplicated; Z20.822 Contact with and (suspected) exposure to COVID-19
CPT/HCPCS: 36415; 80053; 80307; 87635; 96360; 99284; 70450; 80320; 81003; 83735; 84443; 85025

== ENCOUNTER 2022-10-03 04:21 | Outpatient (CLI) | payer MEDICAID, SELFPAY ==
[2022-10-03 12:31] LABS: Lithium 0.5 mmol/l (0.6-1.2)
[2022-10-03 12:44] LABS: ALT 32 U/L (14-59); AST 17 U/L (15-37); Albumin 3.5 g/dL (3.4-5.0); Alkaline Phosphatase 64 U/L (46-116); Anion Gap 8.5 mmol/L (3-11); BUN 16 mg/dL (7-18); Bilirubin, Total 0.2 mg/dL (0.2-1.0); CO2 25.5 mmol/L (21.0-32.0); CREATININE 0.7 mg/dL (0.55-1.02); Calcium 9.6 mg/dL (8.5-10.1); Chloride 106 mmol/L (98-107); Estimated GFR 119.99 (mL/min/1.73m2); Glucose 76 mg/dL (74-106); Magnesium 1.8 mg/dL (1.8-2.4); Potassium 3.8 mmol/L (3.5-5.1); Sodium 140 mmol/L (136-145); Total Protein 6.2 g/dL (6.4-8.2)
== END 2022-10-03 04:22 | disposition home or self-care (01) ==
PROVIDERS: PCP Nurse Practitioner Family; Visit Provider Nurse Practitioner Psychiatric/Mental Health
DX: Z79.899 Other long term (current) drug therapy (principal)
CPT/HCPCS: 36415; 80053; 80178; 83735; 84443

== ENCOUNTER 2022-10-10 01:33 | Outpatient (CLI) | payer MEDICAID, SELFPAY ==
[2022-10-10 12:41] LABS: Lithium 0.3 mmol/l (0.6-1.2)
== END 2022-10-10 01:34 | disposition home or self-care (01) ==
PROVIDERS: PCP Nurse Practitioner Family; Visit Provider Nurse Practitioner Psychiatric/Mental Health
DX: Z79.899 Other long term (current) drug therapy (principal)
CPT/HCPCS: 36415; 80178

== ENCOUNTER 2023-12-31 05:28 | Emergency (ER) | payer MEDICAID, SELFPAY ==
[2023-12-31] VITALS (19 sets, daily range): BP systolic 101–162; BP diastolic 62–124; PULSE 75–131; RESP 14–30; TEMP 36.6; O2SAT 98
--- NOTE | 2023-12-31 05:45 | RT.EKG_ITS ---
APPROVED REPORT Exam: Resting ECG Reason for Exam: possible overdose Patient Location: E HR:86 bpm ECG Measurements Heart Rate 86 AXIS MS 114 P -56 QRSd 91 QRS 80 QT 373 T 38 QTc 447 Conclusion Sinus or ectopic atrial rhythm...P axis (-45,135) sinus rhythm, normal axis, normal intervals, non ischemic
--- NOTE | 2023-12-31 06:00 | W.ED.GENAD ---
Discharge Plan Discharge Details Chief Complaint: PsychEval Primary Care Provider: Malika Dominguez ED Provider: Marlon Helms Home Meds and New Rx's Prescriptions: No Action lorazepam 1 mg tablet 1 mg PO BID PRN (Reason: anxiety) Qty: 30 0RF quetiapine 100 mg tablet 200 mg PO QHS Qty: 60 0RF Rx Instructions: 1-2 tabs po qHS olanzapine 5 mg tablet 5 mg PO DAILY Patient Comments: TAKE 1 TABLET BY MOUTH DAILY FOR 3 DAYS THEN INCREASE TO TAKE TWO TABLETS BY MOUTH EVERY DAY HPI General Date/Time Provider Initiated Documentation: 12/31/23 05:51. HPI Narrative: The patient is a 28-year-old female, with a past medical history significant for bipolar 1 disorder, who presents to the emergency department this evening with her mother complaining of significant decompensation in her daughter's underlying behavioral health and concerns that she could potentially taken an overdose. The patient was seen on Saturday at a local urgent care for similar complaints, and her primary care doctor was contacted and refilled her quetiapine prescription, and provided prescriptions for olanzapine and Ativan. Yesterday, the patient contacted her brother and told him that her had left and she did not know where he was. She also told him that there were people outside of her house and she was scared. He took her on a [facility] and when they returned he discovered that the had been sleeping and their bed the entire time. The brother took away at least the Ativan prescription, and potentially the olanzapine as well and gave the bottles to the . The patient maintained control of her quetiapine prescription, and the mother states that she was taking pills on the way to the hospital while they were in the car. There are only 4 tablets missing from the prescription bottle. There is some bluish discoloration on the tongue and lips, and the patient's mother reports that she thinks she also took some NyQuil. The patient is intermittently somnolent and agitated. When she is alert and agitated, she is highly paranoid and has difficulty complying with instructions for physical examination. She is unable to provide any meaningful history. She continues to scream obscenities and make paranoid statements such as you are not the doctor, and why do you keep touching me... Related Data Home Medications Medication Instructions Recorded Confirmed lorazepam 1 mg tablet 1 mg PO BID PRN anxiety #30 tabs 12/27/23 12/31/23 quetiapine 100 mg tablet 200 mg (2 x 100 mg) PO QHS #60 tabs 12/30/23 12/31/23 olanzapine 5 mg tablet 5 mg PO DAILY 12/31/23 12/31/23 Previous Rx's Medication Instructions Recorded lorazepam 1 mg tablet 1 mg PO BID PRN anxiety #30 tabs 12/27/23 quetiapine 100 mg tablet 200 mg (2 x 100 mg) PO QHS #60 tabs 12/30/23 Allergies Allergy/AdvReac Type Severity Reaction Status Date / Time codeine Allergy Diarrhea Verified 12/31/23 05:42 buspirone AdvReac Intermediate Auditory Verified 12/31/23 05:42 hallucinations Lactose Intolerance AdvReac Unknown GI Upset Uncoded 12/31/23 05:42 General Stated Complaint: PsychEval TERI: 2 Exam Const General: uncooperative and disheveled Orientation: alert, awake, oriented to person and oriented to place Limitations: behavioral limitations Other: The patient is intermittently unfocused and somewhat somnolent, and at other times highly agitated with paranoid thoughts of delusional persecution HENMT Head: normal to inspection and normocephalic General nose exam: external nose normal and no nasal discharge noted Mouth: oral mucosae normal Teeth and gingiva: dentition normal Eyes Pupils: PERRL EOM: EOM intact bilaterally and No nystagmus Neck Neck: full ROM and no JVD Resp Effort & Inspection: normal respiratory effort and able to speak in complete sentences Auscultation: clear to auscultation bilaterally Cardio Rate: tachycardic Rhythm: regular rhythm Heart Sounds: S1 normal and S2 normal Pulses: radial pulses present, ulnar radial pulses present, popliteal pulses present and dorsalis pedis present GI Inspection: normal to inspection Palpation: soft and nontender Auscultation: normal bowel sounds Skin General skin exam: no rashes or lesions noted and turgor normal Neuro General: no focal motor deficits and CN's II-XI intact bilaterally Cranial Nerves: no nystagmus Psych Speech and Movement: agitated and pressured speech Mood: paranoid Course Vital Signs Vital signs: Vital Signs Temperature 36.6 C 12/31/23 05:31 Pulse 101 H 12/31/23 05:31 Respiratory Rate 20 05/07/24 05:31 Blood Pressure 125/101 H 12/31/23 05:31 Pulse Oximetry 98 12/31/23 05:31 Temperature 36.6 C 12/31/23 05:31 Temperature Source Temporal Artery Scan 12/31/23 05:31 Pulse 101 H 12/31/23 05:31 Respiratory Rate 20 12/31/23 05:31 Respiratory Effort Normal, Non-Labored 12/31/23 05:36 Blood Pressure 125/101 H 12/31/23 05:31 Blood Pressure Position Sitting 12/31/23 05:31 Pulse Oximetry 98 12/31/23 05:31 Oxygen Delivery Method Room Air 12/31/23 05:31 Oxygen Flow Rate 0 12/31/23 05:31 Pain Level 0 12/31/23 05:31 Medical Decision Making Although there was some reported history that the patient had taken a drug overdose, there is in fact, relatively little evidence to support this. The patient was taking some pills out of her quetiapine bottle on the way to the emergency room, but there are only 4 pills missing from a 60 pill prescription. The other bottles of Ativan and olanzapine were most likely given to the by the brother, according to the history provided by the mom. The patient however is actively paranoid and agitated, with delusions and potentially some active hallucinations. The patient thinks that there is a camera in the ceiling watching her all the time. She was unable to focus for any significant length of time to help with physical examination and acquisition of history. She clearly did not believe that I was the physician despite having a beds that clearly noted me as the doctor. When attempts were made to place the patient on the monitor, placed an IV, and acquire labs for medical clearance, the patient became more agitated and combative. Should be given IM Haldol, Ativan, and Benadryl to help provide sedation and make the patient compliant with medical testing. She will clearly require referral to [facility] for evaluation and further management planning as this appears to be, in essence, a severe dysregulation and decompensation in her bipolar 1 disorder. The EKG represents a normal sinus rhythm with a ventricular response rate of 86 bpm. There is no overt pattern injury ischemia on this EKG. There are normal interval length, including the QT. Quality:SDOH Health Related Social Needs: No Data to Display PFSH All Active Problems Bipolar 1 disorder (Acute) w/ auditory hallucinations Oral contraceptive pill surveillance (Chronic) Psychosis (Acute ~05/2022) Generalized anxiety disorder with panic attacks (Chronic) Fibromyalgia (Chronic) Anorexia (Chronic) ADHD (attention deficit hyperactivity disorder) (Chronic) Mild intermittent asthma (Chronic) Plantar wart, right foot (Chronic) Medical History Major depressive disorder, recurrent Surgical History S/P removal of ovarian cyst Right Family History Mother Depression Asthma Father Substance abuse Alcohol abuse Depression Mental disorder Brother No problems noted. Brother ADHD Depression Maternal Grandfather Asthma Heart disease Maternal Grandmother Crohn's disease Paternal Grandfather No problems noted. Paternal Grandmother No problems noted. Social History Smoking/Tobacco Use Status: Current every day Tobacco Type: cigarettes and e-cigarettes Tobacco: How many years used: 10 Smokeless tobacco user: dissolvable tobacco Quit status: considering quitting Second Hand Exposure: Yes Smoking risk assessment performed?: Yes Alcohol Intake: former Drug use: Rarely Substance use type: marijuana Caregiver/Support person: Yes Household members: family Housing: homeless Communication Needs: Hard of Hearing Do you need help understanding health information?: Rarely current occupation: [employer] Pets and animals: Yes Pets and animals: cat(s) and dog(s) Sexually active: Yes Do you think of yourself as: straight/heterosexual Current gender identity: female What is your relationship status?: How often do you talk on the phone with friends or family?: three or more times per week How often do you get together with friends or relatives?: once per week How often do you attend adventist or anglican services?: decline to answer Do you belong to any clubs or organized social groups?: no Panel score (0-1 are the most socially isolated patients): 2 What type of physical activity do you participate in: none Frequency: does not exercise Gwen/Restorationism: None Special gwen needs: No Seatbelt use: always Helmet use: Yes Helmet use: always Drive intox or ride w/intox mechanic driver: No Do you feel safe at home: No Do you feel safe in your relationship?: No Female Reproductive History Menstrual control method: copper IUCD History History 0 Para Hx # Term Pregnancies Multiple births Hx # Pregnancies Ectopic pregnancies AB induced Hx Number of Living Children AB spontaneous
[2023-12-31 06:34] LABS: Abs Immature Grans 0.08 10^3/uL (0.0-0.06); Absolute Basophil Count 0.09 10^3/uL (0.0-0.2); Absolute Lymphocyte Count 2.57 10^3/uL (1.2-3.4); Absolute Monocyte Count 1.56 10^3/uL (0.1-0.8); Basophils % 0.6 %; Eosinophils % 0.5 %; HCT 44.6 % (36.0-46.0); HGB 15.5 g/dL (11.2-15.7); Immature Grans % 0.5 %; MCH 32.4 pg (27.0-33.0); MCHC 34.8 % (32.0-36.0); MCV 93 fL (80-95); MPV 10.2 fL (8.0-11.0); Monocytes % 10.3 %; Neutrophils % 71.1 %; Platelet Count 247 10^3/uL (130-400); RBC 4.79 10^6/uL (3.93-5.22); RDW 11.9 % (11.7-14.6); RDW-SD 41.1 fL
[2023-12-31 06:39] LABS: Absolute Eosinophil Count 0.08 10^3/uL (0.0-0.7); Absolute Neutrophil Count 10.74 10^3/uL (1.2-6.7)
[2023-12-31] MEDS: diphenhydrAMINE 50 MG/ML VIAL IM (06:48)
[2023-12-31] MEDS: Haloperidol 5 MG/ML VIAL IM (06:48)
[2023-12-31] MEDS: LORazepam 2 MG/ML VIAL IM (06:49)
[2023-12-31 07:05] LABS: ALT 18 U/L (14-59); AST 12 U/L (15-37); Albumin 4.5 g/dL (3.4-5.0); Alkaline Phosphatase 75 U/L (46-116); Anion Gap 16.2 mmol/L (3-11); BUN 13 mg/dL (7-18); Bilirubin, Total 0.9 mg/dL (0.2-1.0); CO2 19.8 mmol/L (21.0-32.0); CREATININE 0.8 mg/dL (0.55-1.02); Calcium 9.4 mg/dL (8.5-10.1); Chloride 106 mmol/L (98-107); Estimated GFR 101.59 (mL/min/1.73m2); Glucose 95 mg/dL (74-106); Potassium 3.4 mmol/L (3.5-5.1); Sodium 142 mmol/L (136-145); TSH (W/Ref FT4) 2.01 uIU/mL (0.36-3.74); Total Protein 7.4 g/dL (6.4-8.2)
[2023-12-31 07:09] LABS: Diff Comment Agrees w/ Instrument; ETHANOL BLOOD < 3.0 mg/dL (<10); RBC Morphology Normal
[2023-12-31 07:14] LABS: Acetaminophen 67 ug/mL (10-30); Salicylate < 2.8 mg/dL (<2.8)
[2023-12-31 08:50] LABS: Acetaminophen 48 ug/mL (10-30)
--- NOTE | 2023-12-31 08:58 | ED.PROG_ITS ---
Date of service: 12/31/23 Time of Service: 08:58 Medical Decision Making Patient removed from physical restraints. More cooperative resting comfortably. Heart rate now in the 70s on the monitor hemodynamically stable afebrile nontoxic. Metabolizing chemical restraint currently. Acetaminophen level has peaked and is downtrending, falls below treatment line on nomogram. Maintaining airway tolerating secretions. Will continue to reassess hemodynamic status and mental status. Awaiting urinalysis and urine drug screen. 9: 09 patient medically cleared. Will be moved to zone B for evaluation by [facility]. 15: 57 patient was comfortably no acute distress. Alert interactive appr opriate. Is willing to stay voluntarily however if decides to leave [facility] human services would like to be contacted and we will consider placing patient under ED status Quality:SDOH Health Related Social Needs: No Data to Display Sign Out Sign Out Data: Sign Out Comment: The patient is a 28-year-old female, with a history of bipolar disorder, which appears to be decompensated and the patient is severely dysregu lated. The patient has been having paranoid delusional thoughts and some likely auditory and visual hallucinations. She was seen on Saturday at an urgent care and had quetiapine reordered, olanzapine and Ativan added to her regimen by her primary care doctor. The patient may or may not have taken some pills today as a suicidal gesture. The mother provided the history that was somewhat equivoca l, and the only pill bottle that is here only has 4 tablets missing from it. The patient will require referral to [facility] once she is medically cleared. She required medical restraints for medical evaluation and cardiac monitoring. Last updated by Marlon Helms MD at 12/31/23 06:59 Discharge Plan Discharge Details Chief Complaint: PsychEval Primary Care Provider: Malika Dominguez ED Provider: Valente Castillo Home Meds and New Rx's Prescriptions: No Action lorazepam 1 mg tablet 1 mg PO BID PRN (Reason: anxiety) Qty: 30 0RF quetiapine 100 mg tablet 200 mg PO QHS Qty: 60 0RF Rx Instructions: 1-2 tabs po qHS olanzapine 5 mg tablet 5 mg PO DAILY Patient Comments: TAKE 1 TABLET BY MOUTH DAILY FOR 3 DAYS THEN INCREASE TO TAKE TWO TABLETS BY MOUTH EVERY DAY
[2023-12-31 09:00] LABS: BE (Venous) -3 mmol/L (-2-3); HCO3 (Venous) 22 mmol/L (23-28); O2 Sat (Venous) 99 %; TCO2 (Venous) 19 mmol/L (24-29); pCO2 (Venous) 32 mmHg (41-51); pH (Venous) 7.43 (7.31-7.41); pO2 (Venous) 107 mmHg
[2023-12-31 09:32] LABS: Bilirubin Small (Negative); Blood Negative (Negative); Clarity Sl Cloudy (Clear); Glucose Negative (Negative); Ketones 40 mg/dL (Negative); Leukocyte Esterase Negative (Negative); Nitrite Negative (Negative); Urobilinogen 0.2 mg/dL (Up to 0.2)
[2023-12-31 09:38] LABS: *AMPHETAMINES SCREEN URINE Negative (Negative); *BARBITURATES SCREEN URINE Negative (Negative); *BENZODIAZEPINES SCREEN URINE Negative (Negative); Cannabinoids THC Positive (Negative); Cocaine Screen,Urine Negative (Negative); METHADONE URINE SCREEN Negative (Negative); OPIATES URINE SCREEN Negative (Negative); Tricyclic Antidepressants Negative (Negative)
[2023-12-31] MEDS: Nicotine 14 MG/24 HR PATCH (11:46)
--- NOTE | 2023-12-31 11:48 | PDOC.MHCN ---
Date of service: 12/31/23 Time of Service: 11:48 PHQ-9 Over the last 2 weeks, how often have you been bothered by any of the following problems? 1. Little interest or pleasure in doing things: nearly every day 2. Feeling down, depressed, or hopeless: nearly every day 3. Trouble falling or staying asleep, or sleeping too much: nearly every day 4. Feeling tired or having little energy: nearly every day 5. Poor appetite or overeating: nearly every day 6. Feeling bad about yourself - or that you are a failure or have let yourself and your family down: nearly every day 7. Trouble concentrating on things, such as reading the newspaper or watching television: nearly every day 8. Moving or speaking so slowly that other people could have noticed? - Or the opposite - being so fidgety or restless that you have been moving around a lot more than usual: nearly every day 9. Thoughts that you would be better off or of hurting yourself in some way: nearly every day Total score: 27 If you checked off any problems, how difficult have these problems made it for you to do your work, take care of things at home, or get along with other people?: extremely difficult PHQ-9 Results: Positive Source: Developed by Drs. John Gerber, Johanna Higgins, Yusef Islas and colleagues, with an educational naty from [employer] ([employer]). Suicide Severity Rate CSSRS Have you wished you were or wished you could go to sleep and not wake up?: Yes Have you actually had any thoughts of killing yourself?: Yes CSSRS2 Have you been thinking about how you might do this?: Yes Have you had these thoughts and had some intention of acting on them?: Yes Have you started to work out or worked out the details of how to kill yourself? Do you intend to carry out this plan?: No CSSRS3 Have you ever done anything, started to do anything or prepared to do anything to end your life?: Yes CSSRS4 Was this within the past three months?: No Screening Score Total Score: 6 Screening: Positive Mental Health Emergency Note Reason for Visit The client was recently reopened to [facility] and has their first therapy appointment on 01.08 with Sienna Gaspar. She reported that she has been hospitalized before and that this was in January of 2023 per her [id number] as this was when she franco in with her. She was last seen in November of 2023. She was closed out of services when she would not show for appointments and did not respond to letters. The client was assessed as a mobile outreach on 12.30.23. She was safety panned home. Today she arrived with her mother to the ED after swallowing pills impulsively to by suicide. This assessment is completed face to face at bed side in Zone B. In the last 2 weeks has the pt presented for ES prior to today?: Unknown Client Information Client is: New Well Housed: Yes Non Suicidal Self Injury Current: No History: No Safety Risk/Harm to Self or Others Current Ideation to Harm Self or Others: Yes to self. (Impulsive) Intent: no, has no intent. Plan: no.does not have a plan. History of suicide attempt: yes,history of suicide attempt reported. Details of previous suicide attempt: o.d on meds, starving self to . Risk: Does risk to harm exist?: yes. Access to means: Yes. Types of Means: Other weapons and Medication. Counseling provided: Yes Risk: High Risk Duty to warn indicated: No Asssessment/Mental Status Appearance: Disheveled and Poor hygiene Attitude: Cooperative Behavior: Repetitive movements Speech: Normal Affect: Flat and Cogruent with mood Mood: Stressed, Depressed and Anxious Thought process: Blocking, Flight of ideas, Tangential and Poverty of content Hallucinations: yes, Auditory Delusions: yes, Persectory/Paranoid Attention: Poor concentration Perception: Not impaired Orientation: Fully orientated Memory: Intact Insight: Fair Judgement: Poor Neurovegetative Symptoms Sleep: Decrease Appetitie: Decrease Interests: Decrease Energy: Decrease Libido: Not applicable Substance Use: Do you use nicotine?: Yes Have you used substances in the last 7 days?: yes, THC Additional Issues: Assaultive/Threatening Behavior: No Medical Concerns: No Client engaged in active self harm w/weapon: No Threatening to run away: No Child reported abuse/neglect: No Voluntarily presenting for services: Yes Domestic violence is a concern: No Extreme Psychosis or extreme behavior is present: Yes Impression The client is a 28 year old, , born female who lives with her and [id number]. They declined to proved sexual orientation etc. so They/Them are to correctly describe them. All underrepresented categories are honored during this assessment. She did not disclose any previous attempts during this assessment. The client engaged in all screening tools today including the CSSRS. This clinician is not CAMS trained so that resource could not be delivered today. The client appeared slightly less symptomatic and responding to internal stimuli as evidenced by lowering her head to her palms, struggling to understand questions asked and needing them repeated, paranoia. The paranoia on 12.29 looked like her thinking that we were going to arrest her or that sooner was watching the assessment through the zoom camera in the room we were using. Today that looked like feeling as though people were peeping in her bedroom window, and that the hospital was not a hospital and she was going to be raped. She reported that her symptoms are worse today even though she is presenting more calm today than on 12.29.24. Client recalls this clinician when she entered the room after her mother asked if she remembered. This clinician informed mother she likely recalls this clinician from yesterday's encounter and not likely years ago when this clinician worked with the family. The client stated she did remember this clinician from years ago and had a friendly/warm smile on her face. It is this clinician's professional opinion that the client is in need of a higher level of care at this time. The client did not follow her safety plan developed on 12.29 in regards to her check in call as I forgot. She was so scared natasha she came to the ED she required physical and chemical restraints however, once in Zone B she was able to relax an did t need anything more. Per reports of the mother and ED staff the client arrived after the mother witnessed an intentional overdose of medicines. Mother reported that the client's had to go find he client this am as she took off from the home about 2am and found her walking on [address]. Plan/Disposition Recommended Disposition: Hospitalization (Referrals sent ) facilities contacted. Plan: The client will remain at [facility] pending acceptance. This clinician requested a psych consult from the ED to see if we can start some meds sooner rather than later. Dr. Castillo agreed. She will be assessed daily until placed. Person reported agreement to plan: Yes Reports/communication Outcome discussed with: ED/Personnel
--- NOTE | 2023-12-31 12:05 | CMSP_ITS ---
Date of service: 12/31/23 Time of Service: 12:05 Care Management Safety Plan Status Status: Voluntary Reason for Wait Reason for Wait: Inpatient Admission Safety Plan Safety Plan: VOLUNTARY FOR INPATIENT PSYCHIATRIC STABILIZATION.? Patient is appropriate in all interactions since arriving at [facility]; Pt has demonstrated appropriate coping and communication skills, has articulated his or her needs and concerns and is fully engaged during staff interactions. Safety plan has been established with patient, and care team, to adhere to patient goals, identify restrictions based on behavioral status, address nutrition, and determine allowed personal belongings, tools for hygiene and personal care. Determine level of activity including ambulation, level of supervision, visitors, and determine privileges based on behaviors and level of engagement by pt. SAFETY PLAN: 1. Will remain on suicide precautions, in paper clothes. Amna may have her sweatshirt; staff removing any strings, and will monitor for safety. 2. Will remain in Zone B under direct supervision of one-on-one staff at all times provided by [employer]; DAVID, [employer] SALESPERSON senior information security analyst. 3. May have paper cups, plates, finger foods as well as a cardboard spoon with which to eat meals. 4. Follow [facility] Management of the Admitted Behavioral Health Patient policy. 5. Shower available in Zone B without restriction. 6. Personal belongings-sweatshirt; soft items permitted at RN discretion. 7. Visitors- mother allowed to visit at RN discretion. 8. Activities: soft cart items approved per RN discretion. 9.? Bathroom available in Zone B without restriction. 10. Phone: incoming/outgoing calls limited to [facility] cordless phone at RN discretion. Due to VOLUNTARY status, if patient wishes to leave [facility], staff will contact [facility] Crisis Screener ([phone]) and [facility] ([phone]) as soon as possible. In the event of elopement, notify [place] [employer] ([phone]). Patient is currently voluntarily at [facility] and seeking inpatient admission when a bed becomes available. [facility] Frontline Viscosity Worker will continue seeking placement. Please contact the [facility] ([phone]) and [facility] Viscosity Worker ([phone]) for any needed changes in the Safety Plan. Safety plan has been provided to interdepartmental care team.
--- NOTE | 2023-12-31 12:19 | CMPROGNOTE_ITS ---
Date of service: 12/31/23 Time of Service: 12:19 Care Management Progress Note Progress Note Text Progress Note Text: CM met with staff to huddle regarding Amna's plan of care. Per report, Amna is presenting much more calm and stable now that she is in zone B. Per CODY Jones, Amna was screened in the community yesterday, and Karen stated that she is presenting more stable today, although Karen reports that Amna continues to have auditory hallucinations. Karen reported that Amna left home at approximately 2am overnight, and her found her wandering [address] and brought her home. Amna's mother, Yary, has been visiting today after bringing her to the ED for evaluation; per report, Yary is very supportive. Amna also identified her sister in law as a support. It is unclear if Amna's is considered a support, although Amna asked for him to be removed from her HIPAA today. Per LUNA Jones, Amna is voluntarily seeking inpatient psychiatric treatment, although she meets criteria for an involuntary hold. Staff should re engage [facility] if Amna asks to leave [facility]. Referrals are being sent to all accepting facilities by [facility]. Per report, Amna is being considered for admission at [facility]. CM will continue to follow.
--- NOTE | 2023-12-31 16:23 | W.EDPROG ---
Date of service: 12/31/23 Time of Service: 16:23 Medical Decision Making Patient pending voluntary inpatient psychiatric placement for decompensated bipolar 1 disorder. Patient has been medically cleared and has had no issues from prior shift. At that a doc to doc was performed and the patient has been accepted at [facility] Quality:[facility] Health Related Social Needs: No Data to Display Sign Out Sign Out Data: Sign Out Comment: The patient is a 28-year-old female, with a history of bipolar disorder, which appears to be decompensated and the patient is severely dysregulated. The patient has been having paranoid delusional thoughts and some likely auditory and visual hallucinations. She was seen on Saturday at an urgent care and had quetiapine reordered, olanzapine and Ativan added to her regimen by her primary care doctor. The patient may or may not have taken some pills today as a suicidal gesture. The mother provided the history that was somewhat equivocal, and the only pill bottle that is here only has 4 tablets missing from it. The patient will require referral to [facility] once she is medically cleared. She required medical restraints for medical evaluation and cardiac monitoring. Last updated by Marlon Helms MD at 12/31/23 06:59 Sign Out Comment: voluntary for delusions/psychosis, hx bipolar; if wanting to leave, will be EE'd Last updated by Valente Castillo MD at 12/31/23 16:06 Discharge Plan Discharge Details Chief Complaint: PsychEval Primary Care Provider: Malika Dominguez ED Provider: Carolin Casas Home Meds and New Rx's Prescriptions: No Action lorazepam 1 mg tablet 1 mg PO BID PRN (Reason: anxiety) Qty: 30 0RF quetiapine 100 mg tablet 200 mg PO QHS Qty: 60 0RF Rx Instructions: 1-2 tabs po qHS olanzapine 5 mg tablet 5 mg PO DAILY Patient Comments: TAKE 1 TABLET BY MOUTH DAILY FOR 3 DAYS THEN INCREASE TO TAKE TWO TABLETS BY MOUTH EVERY DAY
[2023-12-31 17:20] LABS: Osmolality, Urine 506 mOsm/kg (150-1150)
[2023-12-31 17:35] LABS: Osmolality Serum 286 mOsm/kg (275-295)
[2023-12-31] MEDS: OLANZapine 10 MG TAB PO (17:36)
[2023-12-31] MEDS: Nicotine 2 MG GUM CH (18:20)
[2023-12-31] MEDS: QUEtiapine 100 MG TAB 200 MG PO (19:43)
--- NOTE | 2024-01-01 10:04 | NUR.NOTE ---
Accessed Pt chart to give discharge location to [facility]. She has an appointment today and the Clinical Director Kasia Ritchie was asking.
== END 2023-12-31 20:23 ==
PROVIDERS: Emergency Medicine; Emergency Medicine Emergency Medical Services; Emergency Provider Emergency Medicine; PCP Nurse Practitioner Family
DX: F31.89 Other bipolar disorder (principal); F22 Delusional disorders; R45.1 Restlessness and agitation; F17.210 Nicotine dependence, cigarettes, uncomplicated; F17.290 Nicotine dependence, other tobacco product, uncomplicated; Z59.00 Homelessness unspecified; Z78.1 Physical restraint status
CPT/HCPCS: 00123; 80053; 80307; 81025; 82805; 83935; 93005; 99285; 80320; 80329; 81003; 83930; 84443; 85025; 93010; J1200; J1630; J2060

== ENCOUNTER 2024-02-17 16:43 | Outpatient (REF) | payer MEDICAID, SELFPAY ==
--- NOTE | 2024-02-17 14:45 | PAPFT_PTH ---
PATIENT: Amna Squires LOC: [facility] U#:[id number] AGE/SX: 28/F ROOM: RE02/17/[address]: JEROME May : 1995 BED: DIS: 02/17/2024 SPEC #: [id number] RECD: 02/18/24 13:15 STATUS: MANI REEyad #: [id number] AN: 02/17/24 14:[address]: Malika Dominguez DEPT: [facility] Cytology RECD BY: Chante Solano Tissues: 1 - CX/ENDOCX FOR PAP SMEARS Procedures: PAP THIN PREP/UVM Screening HPV DNA PROBE Comments: [id number] (HPV 16 & 18/45) (CHLAMYDIA/GC)
[2024-02-19 11:54] LABS: Chlamydia Result Negative (Negative); GC Result Negative (Negative)
== END 2024-02-17 16:44 | disposition home or self-care (01) ==
LOC: LBN 16:43
PROVIDERS: PCP Nurse Practitioner Family; Visit Provider Nurse Practitioner Family
DX: A74.9 Chlamydial infection, unspecified (principal)
CPT/HCPCS: 87491; 87591; 88142; 87624

== ENCOUNTER 2024-07-26 13:49 | Observation (INO) | payer MEDICAID, SELFPAY ==
[2024-07-26] VITALS (30 sets, daily range): BP systolic 105–129; BP diastolic 68–92; PULSE 72–145; RESP 15–25; TEMP 36.3–36.9; O2SAT 92–100
--- NOTE | 2024-07-26 14:30 | RT.EKG_ITS ---
APPROVED REPORT Exam: Resting ECG Reason for Exam: Tachycardia Patient Location: E HR:103 bpm ECG Measurements Heart Rate 103 AXIS SC 119 P 51 QRSd 90 QRS 77 QT 352 T 37 QTc 461 Conclusion Sinus tachycardia. 103 normal axis no stemi
[2024-07-26 14:36] LABS: Abs Immature Grans 0.03 10^3/uL (0.0-0.06); Absolute Basophil Count 0.07 10^3/uL (0.0-0.2); Absolute Lymphocyte Count 1.73 10^3/uL (1.2-3.4); Absolute Monocyte Count 0.85 10^3/uL (0.1-0.8); Absolute Neutrophil Count 8.77 10^3/uL (1.2-6.7); Basophils % 0.6 %; Eosinophils % 0.3 %; HCT 46.5 % (36.0-46.0); HGB 15.4 g/dL (11.2-15.7); Immature Grans % 0.3 %; Lymphocytes % 15.1 %; MCH 30.9 pg (27.0-33.0); MCHC 33.1 % (32.0-36.0); MCV 93 fL (80-95); MPV 9.1 fL (8.0-11.0); Monocytes % 7.4 %; Neutrophils % 76.3 %; Platelet Count 307 10^3/uL (130-400); RBC 4.98 10^6/uL (3.93-5.22); RDW 11.3 % (11.7-14.6); RDW-SD 39.2 fL; WBC 11.49 10^3/uL (4.4-10.8)
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
[2024-07-26 14:41] LABS: Absolute Eosinophil Count 0.03 10^3/uL (0.0-0.7)
[2024-07-26] MEDS: LORazepam 2 MG/ML VIAL 1 MG IVP (14:50)
[2024-07-26 14:51] LABS: Creatine Kinase 409 U/L (26-192)
[2024-07-26] MEDS: Normal Saline 500 ML IV (14:51)
[2024-07-26 14:52] LABS: ALT 26 U/L (14-59); AST 26 U/L (15-37); Albumin 4.2 g/dL (3.4-5.0); Alkaline Phosphatase 99 U/L (46-116); Anion Gap 11.6 mmol/L (3-11); BUN 12 mg/dL (7-18); Bilirubin, Total 0.41 mg/dL (0.2-1.0); CO2 26.4 mmol/L (21.0-32.0); CREATININE 0.9 mg/dL (0.55-1.02); Chloride 102 mmol/L (98-107); Glucose 104 mg/dL (74-106); Magnesium 1.9 mg/dL (1.8-2.4); Potassium 4.1 mmol/L (3.5-5.1); Sodium 140 mmol/L (136-145); Total Protein 7.8 g/dL (6.4-8.2)
[2024-07-26 15:03] LABS: ETHANOL BLOOD < 3.0 mg/dL (<10)
[2024-07-26 15:03] LABS: Bilirubin Negative (Negative); Blood Trace-intact (Negative); Clarity Clear (Clear); Glucose Negative (Negative); Ketones Negative (Negative); Leukocyte Esterase Negative (Negative); Nitrite Negative (Negative); Urobilinogen 0.2 mg/dL (Up to 0.2)
[2024-07-26 15:09] LABS: Bacteria Rare HPF (Negative); C & S Indicated? No; Crystals Negative HPF (Negative); Epithelial Cells Many HPF (Negative); Mucus Negative (Negative); RBC 0-2 HPF (0-2); WBC Negative HPF (0-5)
[2024-07-26 15:15] LABS: *AMPHETAMINES SCREEN URINE Negative (Negative); *BARBITURATES SCREEN URINE Negative (Negative); *BENZODIAZEPINES SCREEN URINE Negative (Negative); Cannabinoids THC Negative (Negative); Cocaine Screen,Urine Negative (Negative); METHADONE URINE SCREEN Negative (Negative); OPIATES URINE SCREEN Negative (Negative)
[2024-07-26 15:16] LABS: Tricyclic Antidepressants Negative (Negative)
[2024-07-26 15:21] LABS: Salicylate < 2.8 mg/dL (<2.8)
[2024-07-26 15:25] LABS: Acetaminophen < 2 ug/mL (10-30)
--- NOTE | 2024-07-26 15:57 | ED.FU.B_ITS ---
Follow Up Plan: Handoff report received from maryann Leigh JOHNNA. Please see her note for full HPI, ROS, physical exam, and blood work/EKG interpretation. Amna is a 28-year-old female with history of paranoid schizophrenia, ADHD, and generalized anxiety who presented to the emergency department today for evaluation of all over muscle tremors with episodes of full body convulsions while she is fully awake; this is accompanied by feeling groggy/sluggish and hot flashes. Here in the emergency department workup is reassuring. It was noted that patient had been accidentally taking 10 mg of Haldol twice daily instead of 5 mg in the morning and 10 mg at night. Discussed case with Brenden, pharmacist [facility]. He says to expect anticholinergic effects with LOAN EXAMINER depression, though chronic overuse can cause dystonia and anxiety/psychosis. Recommends observation with supportive care, benztropine/diphenhydramine can be used as needed. Side effects of Haldol likely potentiated by the paliperidone also being taken. Half-life of Haldol is approximately 13 to 35 hours. Recommend rechecking EKG if tachycardia persists greater than 100 bpm, next EKG should be done around 8 PM. Cystocalm for QTc prolongation with subsequent torsades and seizures. Treatment for seizures would be benzos and normal seizure protocol. He advises holding p.m. Haldol and giving other antipsychotics. Discussed case with patient and her family. They are agreeable with plan of care. Presented case to Dr. Hubbard, [facility] hospitalist. He is agreeable to admitting patient for observation/supportive care
[2024-07-26 16:10] LABS: Troponin I 4 ng/L (<or=51)
--- NOTE | 2024-07-26 16:12 | NUR.NOTE ---
Pt came in with family. Reportedly having muscle problems, very jittery, tachycardic, diaphoretic with uncontrolled muscle movements (apparent extrapyrmidal). Pt has had several changes to medication list and has many different psych medications. Med rec needed to be revised as pt has had several medication changes and records did not align with pts current regiment they had in their person. Refills were performed on 07/09/24 with atomoxitine being added to her meds at 40 mg/day. While going over medications, family realized that pt has 2 bottles of Haloperidol. Pt takes 5 mg in the AM and 10 mg at night. Bottles were filled at the same time, but little had been taken from the 5 mg bottle, and the 10 mg bottle was nearly empty. Therefore, family and pt believes she has been accidentally taking 10 mg tab in the morning and 10 mg at night (total of 20 mg daily instead of 15 mg). This is suspected to have been since 07/09/24. Pt has been complaining of 3 days of increased tremors, nausea and uncontrolled muscle movements (hand clenching and keeping arms outstretched). Pt being monitored. Med rec completed and updated. VSS. Has had tachycardia, received 1 mg Ativan IV, 1 mg Benztropine, and 500 mL saline. Pt HR became more normal, with intermittent tachycardia. Pt consistently in NSR 70s-80s and better appearing. Pt and family are pleasant, pt appears to have great support system (, in-laws). Pt has flat affect (long hx of paranoid schizophrenia). Provider has been in touch with poison control. Isaac iNeves, PATRICIAN, RN Nursing Note:
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
[2024-07-26 17:46] LABS: COVID-19 PCR Negative (Negative); Influenza A PCR Negative (Negative); Influenza B PCR Negative (Negative); RSV PCR Negative (Negative)
[2024-07-26 17:47] LABS: Source NASOPHARYNX
--- NOTE | 2024-07-26 19:01 | W.PC.ACHO ---
Registration Status: Primary Language: Preferred Language: ED Information & Data Chief Complaint GenMedical 07/26/24 14:41 Triage Note Pt c/o muscle 'shakes' that 07/26/24 13:59 started 2 days ago. Denies starting new medications. Pt states she has been having hot flashes today. Denies CP/SOB, fever, chills . Pt states she had nausea today. No vomiting. 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 No appetite changes. Able to eat/drink without difficulty . Pt has had a productive cough (clear phlegm) x 2 weeks. Pt also states she has extreme fatigue that started a couple of days ago . No sick contacts. Medical / Surgical History (Last Reviewed 07/26/24 @ 14:36 by Lilliam Cleaning NP) Anorexia Psychosis (~05/2022) Major depressive disorder, recurrent (Last Reviewed 07/26/24 @ 14:36 by Lilliam Cleaning NP) S/P removal of ovarian cyst Most Recent Vital Signs Temperature 36.9 C 07/26/24 18:38 Temperature Source Temporal Artery Scan 07/26/24 18:30 Pulse 82 07/26/24 18:38 Pulse Rhythm Regular 07/26/24 18:38 Pulse 97 H 07/26/24 17:30 Respiratory Rate 16 07/26/24 18:38 Respiratory Effort Normal 07/26/24 18:38 Respiratory Depth Normal 07/26/24 18:38 Respiratory Pattern Normal 07/26/24 18:38 Blood Pressure 106/74 07/26/24 18:38 Blood Pressure Mean 88 07/26/24 17:01 Blood Pressure Position Sitting 07/26/24 13:59 Pulse Oximetry 100 07/26/24 18:38 Oxygen Delivery Method Room Air 07/26/24 18:38 Oxygen Flow Rate 0 07/26/24 18:38 Pain Level 0 07/26/24 18:38 Allergies Benzodiazepines Adverse Reaction (Severe, Verified 07/26/24 14:04) Hallucinations buspirone Adverse Reaction (Intermediate, Verified 07/26/24 14:04) Auditory hallucinations codeine Adverse Reaction (Verified 07/26/24 14:04) Diarrhea Lactose Intolerance Adverse Reaction (Unknown, Uncoded 07/26/24 14:04) GI Upset IV IV Catheter Type [Right Saline Lock Antecubital] IV Catheter Gauge [Right 20 Antecubital] Diet Orders Category Date Time Status Regular/Normal [DIET] Nutrition 07/26/24 Dinner Ordered Diagnostics 07/26/24 07/26/24 07/26/24 Range/Units 17:33 16:58 15:33 WBC (4.4-10.8) 10^3/uL RBC (3.93-5.22) 10^6/uL Hgb (11.2-15.7) g/dL Hct (36.0-46.0) % MCV (80-95) fL MCH (27.0-33.0) pg MCHC (32.0-36.0) % RDW (11.7-14.6) % Plt Count (130-400) 10^3/uL MPV (8.0-11.0) fL Immature Gran % % Neutrophils % % Lymphocytes % % Monocytes % % Eosinophils % % Basophils % % Nucleated RBC % (0.0-0.3) % Absolute Neutrophils (1.2-6.7) 10^3/uL Absolute Lymphocytes (1.2-3.4) 10^3/uL Absolute Monocytes (0.1-0.8) 10^3/uL Absolute Eosinophils (0.0-0.7) 10^3/uL Absolute Basophils (0.0-0.2) 10^3/uL Sodium (136-145) mmol/L Potassium (3.5-5.1) mmol/L Chloride (98-107) mmol/L Carbon Dioxide (21.0-32.0) mmol/L Anion Gap (3-11) mmol/L BUN (7-18) mg/dL Creatinine (0.55-1.02) mg/dL Est GFR (CKD-EPI 2020) (mL/min/1.73m2) Glucose (74-106) mg/dL Calcium (8.5-10.1) mg/dL Magnesium (1.8-2.4) mg/dL Total Bilirubin (0.2-1.0) mg/dL AST (15-37) U/L ALT (14-59) U/L Alkaline Phosphatase (46-116) U/L Creatine Kinase (26-192) U/L Troponin I Cancelled Cancelled (<or=51) ng/L Total Protein (6.4-8.2) g/dL Albumin (3.4-5.0) g/dL Urine Color (Yellow) Urine Clarity (Clear) Urine pH (5-8) Ur Specific [place] (1.005-1.025) Urine Protein (Neg-Trace) mg/dL Urine Ketones (Negative) mg/dL Urine Blood (Negative) Urine Nitrite (Negative) Urine Bilirubin (Negative) Urine Urobilinogen (Up to 0.2) mg/dL Ur Leukocyte Esterase (Negative) Urine RBC (0-2) HPF Urine WBC (0-5) HPF Ur Epithelial Cells (Negative) HPF Urine Crystals (Negative) HPF Urine Bacteria (Negative) HPF Urine Mucus (Negative) Ur Culture Indicated? Urine Glucose (Negative) mg/dL Benztropine Salicylates (<2.8) mg/dL Urine Opiates Screen (Negative) Urine Methadone Screen (Negative) Acetaminophen (10-30) ug/mL Ur Barbiturates Screen (Negative) Ur Tricyclics Screen (Negative) Ur Amphetamines Screen (Negative) U Benzodiazepines Scrn (Negative) Urine Cocaine Screen (Negative) Ur THC Screen (Negative) Ethyl Alcohol (<10) mg/dL COVID-19 Source NASOPHARYNX SARS-CoV-2 (PCR) Negative (Negative) Influenza Type A (PCR) Negative (Negative) Influenza Type B (PCR) Negative (Negative) RSV (PCR) Negative (Negative) 07/26/24 07/26/24 07/26/24 Range/Units 14:51 14:37 14:28 WBC (4.4-10.8) 10^3/uL RBC (3.93-5.22) 10^6/uL Hgb (11.2-15.7) g/dL Hct (36.0-46.0) % MCV (80-95) fL MCH (27.0-33.0) pg MCHC (32.0-36.0) % RDW (11.7-14.6) % Plt Count (130-400) 10^3/uL MPV (8.0-11.0) fL Immature Gran % % Neutrophils % % Lymphocytes % % Monocytes % % Eosinophils % % Basophils % % Nucleated RBC % (0.0-0.3) % Absolute Neutrophils (1.2-6.7) 10^3/uL Absolute Lymphocytes (1.2-3.4) 10^3/uL Absolute Monocytes (0.1-0.8) 10^3/uL Absolute Eosinophils (0.0-0.7) 10^3/uL Absolute Basophils (0.0-0.2) 10^3/uL Sodium (136-145) mmol/L Potassium (3.5-5.1) mmol/L Chloride (98-107) mmol/L Carbon Dioxide (21.0-32.0) mmol/L Anion Gap (3-11) mmol/L BUN (7-18) mg/dL Creatinine (0.55-1.02) mg/dL Est GFR (CKD-EPI 2020) (mL/min/1.73m2) Glucose (74-106) mg/dL Calcium (8.5-10.1) mg/dL Magnesium (1.8-2.4) mg/dL Total Bilirubin (0.2-1.0) mg/dL AST (15-37) U/L ALT (14-59) U/L Alkaline Phosphatase (46-116) U/L Creatine Kinase (26-192) U/L Troponin I 4 (<or=51) ng/L Total Protein (6.4-8.2) g/dL Albumin (3.4-5.0) g/dL Urine Color Yellow (Yellow) Urine Clarity Clear (Clear) Urine pH 7.0 (5-8) Ur Specific [place] 1.020 (1.005-1.025) Urine Protein Negative (Neg-Trace) mg/dL Urine Ketones Negative (Negative) mg/dL Urine Blood Trace-intact H (Negative) Urine Nitrite Negative (Negative) Urine Bilirubin Negative (Negative) Urine Urobilinogen 0.2 (Up to 0.2) mg/dL Ur Leukocyte Esterase Negative (Negative) Urine RBC 0-2 (0-2) HPF Urine WBC Negative (0-5) HPF Ur Epithelial Cells Many (Negative) HPF Urine Crystals Negative (Negative) HPF Urine Bacteria Rare (Negative) HPF Urine Mucus Negative (Negative) Ur Culture Indicated? No Urine Glucose Negative (Negative) mg/dL Benztropine Pending Salicylates < 2.8 (<2.8) mg/dL Urine Opiates Screen Negative (Negative) Urine Methadone Screen Negative (Negative) Acetaminophen < 2 (10-30) ug/mL Ur Barbiturates Screen Negative (Negative) Ur Tricyclics Screen Negative (Negative) Ur Amphetamines Screen Negative (Negative) U Benzodiazepines Scrn Negative (Negative) Urine Cocaine Screen Negative (Negative) Ur THC Screen Negative (Negative) Ethyl Alcohol (<10) mg/dL COVID-19 Source SARS-CoV-2 (PCR) (Negative) Influenza Type A (PCR) (Negative) Influenza Type B (PCR) (Negative) RSV (PCR) (Negative) 07/26/24 Range/Units 14:25 WBC 11.49 H (4.4-10.8) 10^3/uL RBC 4.98 (3.93-5.22) 10^6/uL Hgb 15.4 (11.2-15.7) g/dL Hct 46.5 H (36.0-46.0) % MCV 93 (80-95) fL MCH 30.9 (27.0-33.0) pg MCHC 33.1 (32.0-36.0) % RDW 11.3 L (11.7-14.6) % Plt Count 307 (130-400) 10^3/uL MPV 9.1 (8.0-11.0) fL Immature Gran % 0.3 % Neutrophils % 76.3 % Lymphocytes % 15.1 % Monocytes % 7.4 % Eosinophils % 0.3 % Basophils % 0.6 % Nucleated RBC % 0.0 (0.0-0.3) % Absolute Neutrophils 8.77 H (1.2-6.7) 10^3/uL Absolute Lymphocytes 1.73 (1.2-3.4) 10^3/uL Absolute Monocytes 0.85 H (0.1-0.8) 10^3/uL Absolute Eosinophils 0.03 (0.0-0.7) 10^3/uL Absolute Basophils 0.07 (0.0-0.2) 10^3/uL Sodium 140 (136-145) mmol/L Potassium 4.1 (3.5-5.1) mmol/L Chloride 102 (98-107) mmol/L Carbon Dioxide 26.4 (21.0-32.0) mmol/L Anion Gap 11.6 H (3-11) mmol/L BUN 12 (7-18) mg/dL Creatinine 0.9 (0.55-1.02) mg/dL Est GFR (CKD-EPI 2020) 88.20 (mL/min/1.73m2) Glucose 104 (74-106) mg/dL Calcium 9.0 (8.5-10.1) mg/dL Magnesium 1.9 (1.8-2.4) mg/dL Total Bilirubin 0.41 (0.2-1.0) mg/dL AST 26 (15-37) U/L ALT 26 (14-59) U/L Alkaline Phosphatase 99 (46-116) U/L Creatine Kinase 409 H (26-192) U/L Troponin I (<or=51) ng/L Total Protein 7.8 (6.4-8.2) g/dL Albumin 4.2 (3.4-5.0) g/dL Urine Color (Yellow) Urine Clarity (Clear) Urine pH (5-8) Ur Specific [place] (1.005-1.025) Urine Protein (Neg-Trace) mg/dL Urine Ketones (Negative) mg/dL Urine Blood (Negative) Urine Nitrite (Negative) Urine Bilirubin (Negative) Urine Urobilinogen (Up to 0.2) mg/dL Ur Leukocyte Esterase (Negative) Urine RBC (0-2) HPF Urine WBC (0-5) HPF Ur Epithelial Cells (Negative) HPF Urine Crystals (Negative) HPF Urine Bacteria (Negative) HPF Urine Mucus (Negative) Ur Culture Indicated? Urine Glucose (Negative) mg/dL Benztropine Salicylates (<2.8) mg/dL Urine Opiates Screen (Negative) Urine Methadone Screen (Negative) Acetaminophen (10-30) ug/mL Ur Barbiturates Screen (Negative) Ur Tricyclics Screen (Negative) Ur Amphetamines Screen (Negative) U Benzodiazepines Scrn (Negative) Urine Cocaine Screen (Negative) Ur THC Screen (Negative) Ethyl Alcohol < 3.0 (<10) mg/dL COVID-19 Source SARS-CoV-2 (PCR) (Negative) Influenza Type A (PCR) (Negative) Influenza Type B (PCR) (Negative) RSV (PCR) (Negative) [id number] Documentation POC Urine Test Start: 07/26/24 16:12 Freq: .Urine Test Status: Active Protocol: Activity Type Activity Date Activity User E-sign Co-sign Detail Recorded Client Recorded Date Recorded By Document 07/26/24 16:40 [id number] 07/26/24 16:40 [id number] Intake and Output - 24 Hour Total 07/26/24 13:49 thru 07/26/24 18:38 Intake Total 500 Balance 500 Weight 73.2 kg Intake: IV 500 Falls Risk Assessment History of Falls No History 07/26/24 18:38 Contributing Factors No Factors 07/26/24 18:38 Ambulatory Aids Independent 07/26/24 18:38 Tubes/Lines None 07/26/24 18:38 Gait Evaluation No gait disturbance 07/26/24 18:38 Cognition No cognitive impairment 07/26/24 18:38 Fall Total Score 0 07/26/24 18:38 Level of Risk Standard/Low Risk 07/26/24 18:38 Problems (Last Reviewed 07/26/24 @ 14:36 by Lilliam Cleaning NP) Medication side effect (Acute) Accidental haloperidol overdose (Acute) Paranoid schizophrenia (Chronic) Generalized anxiety disorder with panic attacks (Chronic) ADHD (attention deficit hyperactivity disorder) (Chronic) Notes 07/26/24 16:12 Nursing Notes by Isaac Nieves Pt came in with family. Reportedly having muscle problems, very jittery, tachycardic, diaphoretic with uncontrolled muscle movements (apparent extrapyrmidal). Pt has had several changes to medication list and has many different psych medications. Med rec needed to be revised as pt has had several medication changes and records did not align with pts current regiment they had in their person. Refills were performed on 07/09/24 with atomoxitine being added to her meds at 40 mg/day. While going over medications, family realized that pt has 2 bottles of Haloperidol. Pt takes 5 mg in the AM and 10 mg at night. Bottles were filled at the same time, but little had been taken from the 5 mg bottle, and the 10 mg bottle was nearly empty. Therefore, family and pt believes she has been accidentally taking 10 mg tab in the morning and 10 mg at night (total of 20 mg daily instead of 15 mg). This is suspected to have been since 07/09/24. Pt has been complaining of 3 days of increased tremors, nausea and uncontrolled muscle movements (hand clenching and keeping arms outstretched). Pt being monitored. Med rec completed and updated. VSS. Has had tachycardia, received 1 mg Ativan IV, 1 mg Benztropine, and 500 mL saline. Pt HR became more normal, with intermittent tachycardia. Pt consistently in NSR 70s-80s and better appearing. Pt and family are pleasant, pt appears to have great support system (, in-laws). Pt has flat affect (long hx of paranoid schizophrenia). Provider has been in touch with poison control. Isaac Nieves, PATRICIAN, RN Nursing Note: Initialized on 07/26/24 16:12 - END OF NOTE v v v v v v v v v Sending and/or Receiving Nurses: Please use comment section below to note any information pertinent to the patient hand-off not included above. Information / Comments: Report received from: Michael in ED at [id number]
[2024-07-26] MEDS: Normal Saline Flush 10 ML SYR IVP (21:20)
[2024-07-27 03:02] VITALS: BP 105/70; PULSE 88; RESP 16; TEMP 36.8; O2SAT 99
[2024-07-27] MEDS: LORazepam 0.5 MG TAB 1 MG PO ×2 (05:04→12:33)
[2024-07-27 06:56] LABS: Abs Immature Grans 0.02 10^3/uL (0.0-0.06); Absolute Basophil Count 0.08 10^3/uL (0.0-0.2); Absolute Eosinophil Count 0.09 10^3/uL (0.0-0.7); Absolute Lymphocyte Count 2.06 10^3/uL (1.2-3.4); Absolute Monocyte Count 0.68 10^3/uL (0.1-0.8); Absolute Neutrophil Count 5.77 10^3/uL (1.2-6.7); Basophils % 0.9 %; HCT 44.4 % (36.0-46.0); HGB 14.9 g/dL (11.2-15.7); Immature Grans % 0.2 %; Lymphocytes % 23.7 %; MCHC 33.6 % (32.0-36.0); MCV 93 fL (80-95); MPV 9.5 fL (8.0-11.0); Monocytes % 7.8 %; Neutrophils % 66.4 %; Platelet Count 290 10^3/uL (130-400); RDW 11.4 % (11.7-14.6)
[2024-07-27 07:17] LABS: ALT 25 U/L (14-59); AST 26 U/L (15-37); Albumin 4.2 g/dL (3.4-5.0); Alkaline Phosphatase 99 U/L (46-116); Anion Gap 10.7 mmol/L (3-11); BUN 10 mg/dL (7-18); Bilirubin, Total 0.82 mg/dL (0.2-1.0); CO2 27.3 mmol/L (21.0-32.0); CREATININE 0.9 mg/dL (0.55-1.02); Calcium 9.4 mg/dL (8.5-10.1); Chloride 103 mmol/L (98-107); Glucose 87 mg/dL (74-106); Magnesium 2.1 mg/dL (1.8-2.4); Potassium 3.6 mmol/L (3.5-5.1); Sodium 141 mmol/L (136-145); Total Protein 7.8 g/dL (6.4-8.2)
[2024-07-27 07:22] VITALS: BP 111/80; PULSE 84; RESP 17; TEMP 36.9; O2SAT 96
[2024-07-27] MEDS: Sertraline 100 MG TAB 150 MG PO (08:04)
[2024-07-27] MEDS: lamoTRIgine 100 MG TAB PO (08:04)
[2024-07-27] MEDS: Normal Saline Flush 10 ML SYR IVP (09:10)
[2024-07-27] MEDS: Acetaminophen 325 MG TAB PO (10:23)
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
[2024-07-27 11:17] VITALS: BP 116/82; PULSE 92; RESP 16; TEMP 37; O2SAT 96
--- NOTE | 2024-07-27 12:19 | PT.INIE ---
PT Notes Visit Reasons: Accidental overdose of haloperidol Physical Therapy Initial Evaluation Date 07/27/2024 Referring Doctor: Marilyn Dumont PT Orders: PT CONSULT: Safety consult for discharge Precautions: Standard Patient Profile/Admitting Diagnosis: Pt is 28 yo female presented to ED with tremors x 2 weeks. work up in ED revealed Pt with tachycardia and pt had taken extra dose of haldol after recent prescription change as well as starting a new medication Strattera . Pt given IV fluids and transferred to Med/Surg unit for further monitoring. PT consult placed in anticipation of discharge to home PMHX: Paranoid schizophrenia (Chronic) Generalized anxiety disorder with panic attacks (Chronic) Fibromyalgia (Chronic) ADHD (attention deficit hyperactivity disorder) (Chronic) Mild intermittent asthma (Chronic) Medical History Anorexia Psychosis (~05/2022) Major depressive disorder, recurrent Surgical History S/P removal of ovarian cyst Right Social History/Home Situation: Pt resides in a single family home with 6 steps to enter porch then step into home. She is independent with ADL, ambulation Equipment Owned/DME: None Subjective: Patient reports she is feeling well and hopeful to go home Objective: General Observation: Patient presents seated in bed on her phone. Patient with flat affect agreeable to participate in PT evaluation Mental Status: Alert and oriented x 4 Pain: Denies ROM: [] Right Upper Extremity: WNL Left Upper Extremity: WNL Right Lower Extremity: WNL Left Lower Extremity: WNL Strength: [] Right Upper Extremity: 5/5 Left Upper Extremity: 5/5 Right Lower Extremity: 5/5 Left Lower Extremity: 5/5 Sensation: Intact bilateral upper and lower extremities Bed Mobility/Transfers: Supine to sit independent Sit to stand independent Stand to sit up independent Bed to chair independent Gait: Independent ambulation without device 300 feet reciprocal pattern no loss of balance level surfaces including turns Stairs: Independent with 1 rail on 4 steps reciprocal pattern Balance: Static Sitting: Normal Dynamic Sitting: Normal Static Standing: Normal Dynamic Standing: Normal Special Tests: 4 STAGE BALANCE TEST: Feet together _10___ seconds 1/2 Stance ____10___ seconds Tandem stance _8___seconds Single leg stance left__8__seconds, right_9___seconds Mobility Limitations Standardized Measure [facility] 6 clicks Basic Mobility Inpatient Short Form: Raw Score: 24 CMS Score: 0% Informed Consent/Education: Patient instructed in purpose of PT consult. Assessment: Patient is a 28-year-old female presenting status post accidental Haldol overdose due to change in recent prescription. Patient demonstrates ability to perform bed mobility, transfers, ambulation, stairs independently without assistive device without loss of balance. Patient scored 24 on [facility] inpatient Short form indicating 0% risk for falls. Patient did demonstrate slight instability with single limb stance and tandem without foot wear. Pt has no tremors at this time. Patient demonstrated no loss of balance for functional tasks and is safe for discharge to home Patient is assessed as a low complexity based on the following: History: 28-year-old female with impairment level findings, functional limitations, and past medical history as indicated above Examination: Demonstrable impairment in strength, balance, and mobility level with underlying impairments and functional limitations as documented above Presentation: Stable Decision Making: Low Goals: N/A. Plan of Care/Treatment Plan: N/A. DISCHARGE RECOMMENDATIONS: Home with no services TREATMENT CODE/TIME: [id number] Thank you for the opportunity to participate in the care of this patient. Lashaun Dey PT N[facility] H Please sign an return this page within 30 days if you agree with the above POC. Thank you! Physician Signature Date [facility]
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
[2024-08-04 15:43] LABS: Benztropine (Cogentin) <1.0 ng/ml (5.0 - 25.0)
== END 2024-07-27 13:58 | disposition home or self-care (01) ==
LOC: ER 16:26 → MS 18:24
PROVIDERS: Nurse Practitioner Family; Registered Nurse Emergency; Admitting Provider Hospitalist; Emergency Provider Nurse Practitioner Family; PCP Nurse Practitioner Family; Visit Provider Hospitalist
DX: T43.4X1A Poisoning by butyrophenone and thiothixene neuroleptics, accidental (unintentional), initial encounter; G25.1 Drug-induced tremor; G25.3 Myoclonus; R00.0 Tachycardia, unspecified; F20.0 Paranoid schizophrenia; F41.0 Panic disorder [episodic paroxysmal anxiety]; F90.9 Attention-deficit hyperactivity disorder, unspecified type; Z79.899 Other long term (current) drug therapy; M79.7 Fibromyalgia; J45.20 Mild intermittent asthma, uncomplicated; F17.290 Nicotine dependence, other tobacco product, uncomplicated
CPT/HCPCS: 00123; 36415; 80053; 80307; 81025; 82550; 87637; 93005; 96372; 96374; 97161; 99285; 80299; 80320; 80329; 81003; 81015; 83735; 84484; 85025; 93010; 99222; 99239; G0378; J0515; J2060

== ENCOUNTER 2024-12-28 12:01 | Outpatient (CLI) | payer MEDICAID, SELFPAY ==
[2024-12-28 12:46] LABS: Abs Immature Grans 0.03 10^3/uL (0.0-0.06); Absolute Basophil Count 0.05 10^3/uL (0.0-0.2); Absolute Monocyte Count 0.65 10^3/uL (0.1-0.8); Absolute Neutrophil Count 5.69 10^3/uL (1.2-6.7); Basophils % 0.6 %; HCT 44.1 % (36.0-46.0); HGB 14.2 g/dL (11.2-15.7); Immature Grans % 0.3 %; Lymphocytes % 26.4 %; MCH 30.9 pg (27.0-33.0); MCHC 32.2 % (32.0-36.0); MCV 96 fL (80-95); MPV 9.4 fL (8.0-11.0); Monocytes % 7.5 %; Neutrophils % 65.2 %; Platelet Count 252 10^3/uL (130-400); RDW 12.6 % (11.7-14.6); RDW-SD 44.4 fL; WBC 8.72 10^3/uL (4.4-10.8)
[2024-12-28 14:00] LABS: Calculated LDL 111 mg/dL (<100); Cholesterol 172 mg/dL (<200); HDL Cholesterol 48 mg/dL (>or=50); TSH (W/Ref FT4) 2.29 uIU/mL (0.36-3.74); Triglyceride 68 mg/dL (<150)
[2024-12-28 17:23] LABS: ALT 24 U/L (14-59); AST 17 U/L (15-37); Albumin 3.9 g/dL (3.4-5.0); Alkaline Phosphatase 102 U/L (46-116); Anion Gap 10.5 mmol/L (3-11); BUN 10 mg/dL (7-18); Bilirubin, Total 0.3 mg/dL (0.2-1.0); CO2 23.5 mmol/L (21.0-32.0); CREATININE 0.9 mg/dL (0.55-1.02); Calcium 8.9 mg/dL (8.5-10.1); Chloride 106 mmol/L (98-107); Estimated GFR 87.65 (mL/min/1.73m2); Glucose 90 mg/dL (74-106); Potassium 4.2 mmol/L (3.5-5.1); Sodium 140 mmol/L (136-145); Total Protein 6.8 g/dL (6.4-8.2)
== END 2024-12-28 12:02 | disposition home or self-care (01) ==
LOC: LBO 12:02
PROVIDERS: PCP Nurse Practitioner Family; Visit Provider Nurse Practitioner Psychiatric/Mental Health
DX: Z00.00 Encounter for general adult medical examination without abnormal findings (principal); F20.0 Paranoid schizophrenia; F31.2 Bipolar disorder, current episode manic severe with psychotic features; Z79.899 Other long term (current) drug therapy
CPT/HCPCS: 36415; 80053; 80061; 83036; 84146; 84443; 85025

== ENCOUNTER 2025-03-18 11:21 | Outpatient (CLI) | payer MEDICAID, SELFPAY ==
[2025-03-18 11:35] LABS: Abs Immature Grans 0.06 10^3/uL (0.0-0.06); HCT 41.9 % (36.0-46.0); HGB 13.6 g/dL (11.2-15.7); Immature Grans % 0.5 %; MCH 29.5 pg (27.0-33.0); MCHC 32.5 % (32.0-36.0); MCV 91 fL (80-95); MPV 9.2 fL (8.0-11.0); Platelet Count 304 10^3/uL (130-400); RBC 4.61 10^6/uL (3.93-5.22); RDW 12.2 % (11.7-14.6); RDW-SD 40.5 fL; WBC 11.22 10^3/uL (4.4-10.8)
[2025-03-18 12:06] LABS: ALT 34 U/L (14-59); AST 20 U/L (15-37); Albumin 3.9 g/dL (3.4-5.0); Alkaline Phosphatase 108 U/L (46-116); Anion Gap 10.2 mmol/L (3-11); BUN 9 mg/dL (7-18); Bilirubin, Total 0.3 mg/dL (0.2-1.0); CO2 24.8 mmol/L (21.0-32.0); Calcium 9.2 mg/dL (8.5-10.1); Chloride 105 mmol/L (98-107); Estimated GFR 87.65 (mL/min/1.73m2); Glucose 110 mg/dL (74-106); Potassium 3.8 mmol/L (3.5-5.1); Sodium 140 mmol/L (136-145); TSH (W/Ref FT4) 1.19 uIU/mL (0.36-3.74); Total Protein 7.1 g/dL (6.4-8.2)
== END 2025-03-18 11:22 | disposition home or self-care (01) ==
LOC: LBO 11:21
PROVIDERS: PCP Nurse Practitioner Family; Visit Provider Nurse Practitioner Psychiatric/Mental Health
DX: Z79.899 Other long term (current) drug therapy (principal)
CPT/HCPCS: 36415; 80053; 84443; 85025

== ENCOUNTER 2025-08-09 10:05 | Outpatient (CLI) | payer MEDICAID, SELFPAY ==
[2025-08-09 09:51] LABS: Abs Immature Grans 0.03 10^3/uL (0.0-0.06); HCT 47.7 % (36.0-46.0); HGB 15.5 g/dL (11.2-15.7); Immature Grans % 0.3 %; MCH 30.0 pg (27.0-33.0); MCHC 32.5 % (32.0-36.0); MCV 92 fL (80-95); MPV 9.7 fL (8.0-11.0); Platelet Count 294 10^3/uL (130-400); RBC 5.17 10^6/uL (3.93-5.22); RDW 13.9 % (11.7-14.6); RDW-SD 47.6 fL; WBC 10.15 10^3/uL (4.4-10.8)
[2025-08-09 10:12] LABS: ALT 23 U/L (10-49); AST 22 U/L (<34); Albumin 4.9 g/dL (3.2-5.0); Alkaline Phosphatase 140 U/L (46-116); Anion Gap 9.9 mmol/L (3-11); BUN 8 mg/dL (9-23); Bilirubin, Total 0.4 mg/dL (0.2-1.2); CO2 26.1 mmol/L (20.0-31.0); Calcium 9.8 mg/dL (8.3-10.6); Chloride 108 mmol/L (98-107); Glucose 95 mg/dL (74-106); Potassium 3.8 mmol/L (3.5-5.1); Sodium 144 mmol/L (136-145); Total Protein 7.9 g/dL (5.7-8.2)
[2025-08-09 10:14] LABS: TSH 2.99 uIU/mL (0.55-4.78)
[2025-08-09 10:19] LABS: Hemoglobin A1C 5.1 % (<5.7)
== END 2025-08-09 10:06 | disposition home or self-care (01) ==
LOC: LBO 10:05
PROVIDERS: PCP Nurse Practitioner Family; Visit Provider Nurse Practitioner Psychiatric/Mental Health
DX: Z79.899 Other long term (current) drug therapy (principal)
CPT/HCPCS: 36415; 80053; 83036; 84443; 85025